=== PATIENT | female | born 1950 | race Caucasian/White ===

== ENCOUNTER 2019-07-15 14:14 | Inpatient (IN) | payer OTHER ==
[~2019-07-15] VITALS: Ht 160 cm; Wt 56.6 kg
[2019-07-15 14:16] VITALS: BP 86/47
[2019-07-15] MEDS ORDERED: LOSARTAN-HCTZ1 EAC3 PO (14:17)
[2019-07-15] MEDS ORDERED: CARVEDILOL25 MG PO (14:17)
[2019-07-15] MEDS ORDERED: BEVESPI AEROS10.7 GM INH (14:18)
[2019-07-15] MEDS ORDERED: LIPITOR80 MG PO (14:18)
[2019-07-15] MEDS ORDERED: OMEPRAZOLE 20 M20 M1 PO (14:18)
[2019-07-15] MEDS ORDERED: REQUIP XL2 MG PO (14:18)
[2019-07-15] MEDS ORDERED: NORVASC10 MG PO (14:19)
[2019-07-15] MEDS ORDERED: CLONIDINE HCL0.2 M2 PO (14:19)
[2019-07-15 15:02] LABS: HEMOGLOBIN 7.1 gm/dL (12.0-15.0); MCH 30.9 pg (26.0-34.0); MCHC 33.9 g/dL (28.0-37.0); MCV 91.2 fL (80.0-100.0); MPV 8.2 fl. (7.2-11.1); NUCLEATED RBCS 0 /100WBC; PLATELET COUNT* 275 thou/uL (150-400); RDW-CV 15.4 % (10.5-14.5); WBC 14.8 thou/uL (4.0-11.0)
[2019-07-15 15:11] LABS: APTT 33.9 Seconds (25.0-31.3); INR 1.1; PROTIME 11.5 Seconds (9.20-11.50)
[2019-07-15 15:19] LABS: INFLUENZA A ANTIGEN Negative (Negative); INFLUENZA B ANTIGEN Negative (Negative)
[2019-07-15 15:35] LABS: ABSOLUTE BASOPHILS 0.1 thou/uL (0.0-0.2); ABSOLUTE MONOCYTES 0.9 thou/uL (0.0-1.2); ABSOLUTE NEUTROPHILS 12.7 thou/uL (1.6-8.1)
[2019-07-15 15:36] LABS: PLATELET ESTIMATE ADEQUATE
[2019-07-15 15:48] LABS: CALCIUM 8.3 mg/dL (8.5-10.1); CREATININE 7.3 mg/dL (0.6-1.3); POTASSIUM 4.9 mmol/L (3.5-5.1)
[2019-07-15 15:59] LABS: ALBUMIN 2.8 g/dL (3.4-5.0); MAGNESIUM 1.3 mg/dL (1.8-2.4); TOTAL BILIRUBIN 0.4 mg/dL (<0.1-1.0); TOTAL PROTEIN 7.7 g/dL (6.4-8.2)
[2019-07-15] MEDS ORDERED: STIOLTO RESPIMAT4 GM INH (16:37)
--- NOTE | 2019-07-15 17:25 | NUR ---
BLOOD CONSENT SIGNED, AND STARTED. VITALS WRITTEN ON PAPER. SEE FLOW SHEET FOR DATA. PATIENT TOLERATED INITIAL TREATMENT WELL.
--- NOTE | 2019-07-15 17:40 | NUR ---
PATIENT TOLERATED SLOW RATE OF BLOOD PRODUCT, INCREASED TO 190 MLS/HR
--- NOTE | 2019-07-15 19:11 | NUR ---
BLOOD FINISHED, PATIENT TOLERATED PROCEDURE WELL.
[2019-07-15 20:00] VITALS: BP 111/54
[2019-07-15 20:14] VITALS: BP 109/55
[2019-07-15 22:57] LABS: URINE BILIRUBIN NEGATIVE (Negative); URINE BLOOD 1+ (Negative); URINE CLARITY CLEAR; URINE COLOR YELLOW; URINE GLUCOSE-RANDOM NEGATIVE (Negative); URINE KETONES NEGATIVE (Negative); URINE LEUKOCYTES-REFLEX NEGATIVE (Negative); URINE NITRITE-REFLEX NEGATIVE (Negative); URINE PROTEIN 3+ (Negative); URINE UROBILINOGEN 0.2 E.U./dl (0.2-1.0)
[2019-07-15 23:03] LABS: AMORPHOUS URATES Moderate /LPF (None Seen); CASTS None Seen /LPF (None Seen); MUCUS 4-6 Moderate strn/LPF (None Seen); SQUAMOUS 0-3 Few /LPF (0-3); URINE RBC 3-10 Few /HPF (0-2); URINE WBC-REFLEX 0-5 Rare /HPF (0-5)
[2019-07-15 23:52] VITALS: BP 118/58
--- NOTE | 2019-07-16 03:51 | NUR ---
ASSUMED CARE OF PT FROM THE ER AT 2009. PT IS ALERT AND ORIENTED. VSS. PERRLA. NO COMPLAINTS OF PAIN. PT IS UP WITH 1 ASSIST. PT IS ON 4 LITERS OF O2. PT IS IN SINUS RYTHM ON THE TELEMETRY. PT IS RESTING COMFORTABLY IN BED. RESPIRATIONS ARE EVEN AND NONLABORED. WILL CONTINUE TO MONITOR PT.
[2019-07-16 04:02] VITALS: BP 131/60
[2019-07-16 04:55] LABS: HEMATOCRIT 24.4 % (37.0-47.0); HEMOGLOBIN 8.2 gm/dL (12.0-15.0); MCH 30.8 pg (26.0-34.0); MCHC 33.8 g/dL (28.0-37.0); MCV 91.1 fL (80.0-100.0); MPV 8.5 fl. (7.2-11.1); RBC 2.68 mil/uL (4.20-5.00); RDW-CV 15.4 % (10.5-14.5); WBC 13.2 thou/uL (4.0-11.0)
[2019-07-16 05:09] LABS: ALBUMIN 2.4 g/dL (3.4-5.0); CALCIUM 7.6 mg/dL (8.5-10.1); CREATININE 6.4 mg/dL (0.6-1.3); PHOSPHORUS* 8.3 mg/dL (2.5-4.9); POTASSIUM 4.1 mmol/L (3.5-5.1)
[2019-07-16 07:40] VITALS: BP 126/57
[2019-07-16 12:14] VITALS: BP 125/61
[2019-07-16 12:52] LABS: % SATURATION 6 % (20-39); IRON 16 ug/dL (50-175)
[2019-07-16 16:49] VITALS: BP 74/50
--- NOTE | 2019-07-16 18:45 | NUR ---
PT HAS HAD NO C/O PAIN/NAUSEA DURING ROUNDING. VSS ON 5L NC. BP HAS BEEN LOW. PT TO BEGIN BOWEL PREP THIS EVENING FOR SCOPE TOMORROW. CXR IN AM. PT IS STEADY WITH SBA. FALL PRECAUTIONS IN PLACE.
[2019-07-17 00:22] VITALS: BP 144/85
--- NOTE | 2019-07-17 03:36 | NUR ---
ASSUMED CARE OF PT AT 1900. PT IS ALERT AND ORIENTED. VSS. PERRLA. NO COMPLAINTS OF PAIN. PT FINISHED BOWEL PREP AND STOOL IS CLEAR.. PT HAS A PERSISTANT COUGH. PT RECIEVED COUGH MEDICAINE. PT IS IN SINUS RYTHM ON THE TELEMETRY. PT IS RESTING COMFORTABLY IN BED. RESPIRATIONS ARE EVEN AND NONLABORED. WILL CONTINUE TO MONITOR PT.
[2019-07-17 04:22] VITALS: BP 150/71
[2019-07-17 05:30] LABS: ALBUMIN 2.6 g/dL (3.4-5.0); CALCIUM 7.6 mg/dL (8.5-10.1); CREATININE 5.8 mg/dL (0.6-1.3); POTASSIUM 4.2 mmol/L (3.5-5.1); TOTAL BILIRUBIN 0.3 mg/dL (<0.1-1.0); TOTAL PROTEIN 7.1 g/dL (6.4-8.2)
[2019-07-17 08:00] VITALS: BP 154/68
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
[2019-07-17 12:00] VITALS: BP 168/70
[2019-07-17 16:00] VITALS: BP 178/131
[2019-07-18 00:52] VITALS: BP 173/75
[2019-07-18 04:45] VITALS: BP 179/78
--- NOTE | 2019-07-18 04:48 | NUR ---
ASSUMED CARE OF PT AT 1900. PT IS ALERT AND ORIENTED. VSS.PERRLA. SOME PAIN REPORTED IN CHEST WHEN PT IS DEEP BREATHING. AT ABOUT 0330, PTS SPO2 WAS LOW 80'S. PTS O2 INCREASED BUT PT SPO2 STILL NOT TO 90. PT STARTED ON BIPAP SETTINGS 12/6, 60% AND RR 12. PT IS IN SINUS RYTHM ON THE TELEMETRY. PT IS SLEEPING QUIETLY IN BED. SPO2 IS 94%. RESPIRATIONS ARE EVEN AND NONLABORED. WILL CONTINUE TO MONITOR PT.
[2019-07-18 05:55] LABS: HEMATOCRIT 25.8 % (37.0-47.0); HEMOGLOBIN 8.5 gm/dL (12.0-15.0); MCH 30.4 pg (26.0-34.0); MPV 7.7 fl. (7.2-11.1); NUCLEATED RBCS 0 /100WBC; PLATELET COUNT* 288 thou/uL (150-400); RDW-CV 15.4 % (10.5-14.5); WBC 14.5 thou/uL (4.0-11.0)
[2019-07-18 06:19] LABS: ALBUMIN 2.4 g/dL (3.4-5.0); CALCIUM 7.7 mg/dL (8.5-10.1); CREATININE 5.6 mg/dL (0.6-1.3); POTASSIUM 4.3 mmol/L (3.5-5.1); TOTAL BILIRUBIN 0.3 mg/dL (<0.1-1.0); TOTAL PROTEIN 6.7 g/dL (6.4-8.2)
[2019-07-18 07:07] LABS: ABSOLUTE EOSINOPHILS 0.1 thou/uL (0.0-0.7); ABSOLUTE NEUTROPHILS 12.3 thou/uL (1.6-8.1); MYELOCYTES 1 %; PLATELET ESTIMATE ADEQUATE
[2019-07-18 07:08] LABS: ANISOCYTOSIS 1+; OVALOCYTES 1+; POIKILOCYTOSIS 1+
[2019-07-18 12:00] VITALS: BP 165/62
--- NOTE | 2019-07-18 15:10 | NUR ---
Pt is A&O. Resides at home with her dtr. Normally independent. No home o2, no DME. No hx of HH or SNF. CM inquired into if Pt would qualify for Medicare, Pt states that she hasn't worked long enough, [employer] to see Pt for Medicaid. Goal is home at [place]. Following.
[2019-07-18 16:00] VITALS: BP 169/62
--- NOTE | 2019-07-18 18:56 | NUR ---
PATINET RESTING IN BED. UP WITH ASSIST X1. 12 L PER NASAL CANULA. BIAPAP PRN. IV FKLUIDS AND ABX THROUGH NEW 22 G LEFT FOREARM IV. SIENNA NICK COMPLETD FOR PATIENT SAFETY
[2019-07-18 20:00] VITALS: BP 83/51
[2019-07-19] VITALS: BP 90/56
--- NOTE | 2019-07-19 03:34 | NUR ---
PT ALERT ORIENTED X 4. UP WITH STAND BY ASSIST. PT SOMEWHAT IMPULSIVE AND ATTEMPTS TO GET OOB WITHOUT CALLING THE NURSE. TELEMETRY SHOWS SR. O2 AT 12 LITERS NC. HS COREG HELD FOR LOW BP. MORPHINE GIVEN HS. WCTM
[2019-07-19 04:00] VITALS: BP 167/62
--- NOTE | 2019-07-19 05:15 | NUR ---
COREG GIVEN EARLY AT O507 FOR BP 172/63 HR 82.
[2019-07-19 05:49] LABS: ABSOLUTE BASOPHILS 0.1 thou/uL (0.0-0.2); ABSOLUTE EOSINOPHILS 0.2 thou/uL (0.0-0.7); ABSOLUTE LYMPHOCYTES 1.3 thou/uL (0.8-5.3); ABSOLUTE MONOCYTES 0.8 thou/uL (0.0-1.2); ABSOLUTE NEUTROPHILS 9.5 thou/uL (1.6-8.1); BASOPHILS 0.6 %; EOSINOPHILS 1.3 %; HEMATOCRIT 24.7 % (37.0-47.0); HEMOGLOBIN 8.2 gm/dL (12.0-15.0); LYMPHOCYTES 11.1 %; MCH 30.6 pg (26.0-34.0); MCHC 33.2 g/dL (28.0-37.0); MCV 92.1 fL (80.0-100.0); MONOCYTES 6.6 %; MPV 8.1 fl. (7.2-11.1); NUCLEATED RBCS 0 /100WBC; PLATELET COUNT* 313 thou/uL (150-400); POLYS 80.4 %; RBC 2.69 mil/uL (4.20-5.00); RDW-CV 15.2 % (10.5-14.5); WBC 11.8 thou/uL (4.0-11.0)
[2019-07-19 05:56] LABS: CALCIUM 8.2 mg/dL (8.5-10.1); CREATININE 5.4 mg/dL (0.6-1.3); POTASSIUM 4.2 mmol/L (3.5-5.1)
[2019-07-19 08:10] VITALS: BP 179/69
[2019-07-19 12:00] VITALS: BP 162/65
--- NOTE | 2019-07-19 12:24 | CON ---
[address] [address] CONSULTATION Name: BARRETT OBANDO Room: [address] IN .R.#: [id number] Admission: 07/15/19 Attend Phys: Jim Bradshaw, Discharge: Date of : 54 Report #: [id number] THIS REPORT FOR: //name// cc: Barbara Gutierrez Tami FNP ~ THIS REPORT FOR: //name// CC: Barbara Bradshaw DATE OF SERVICE: 07/16/2019 HISTORY OF PRESENT ILLNESS: This is a pleasant 68-year-old female with history of COPD, who has presented to the hospital for increasing shortness of breath and dyspnea on exertion. The GI service has been consulted for incidentally diagnosed iron deficiency anemia. The patient denies any abdominal pain, nausea, vomiting, diarrhea, hematemesis, hematochezia. The patient does report about a 20-pound weight loss in the last few months, but attributes this to loss of appetite as well as having to raise a 3-year-old. PAST MEDICAL HISTORY: The patient has a history of hypertension, hyperlipidemia. PAST SURGICAL HISTORY: The patient reports emergent at the time of her childbirth. Otherwise, no surgery. SOCIAL HISTORY: The patient has a history of 1 pack per day smoking until last year and she cut it down to about 1/3 of a pack. She does report heavy alcohol abuse until a few years back. Denies any recreational drug use. FAMILY HISTORY: There is no family history of colon cancer or Barrera related neoplasia. REVIEW OF SYSTEMS: Negative except for what was mentioned in the HPI. PHYSICAL EXAMINATION: VITAL SIGNS: Blood pressure 125/61, temperature 36.9, pulse rate 80, respirations 18, pulse ox 92% on 5 liters. GENERAL: The patient is alert, awake, oriented x 3. HEENT: Pupils are equal, round, reactive to light and accommodation. Mucous membranes are moist. There is no congestion. LUNGS: Clear to auscultation. ABDOMEN: Soft. There is no distention, guarding or rigidity. EXTREMITIES: Warm, well perfused. There is no edema. SKIN: [place] [address] CONSULTATION Name: BARRETT OBANDO Room: [address] IN [facility]#: [id number] Admission: 07/15/19 Attend Phys: Jim Bradshaw, Discharge: Date of : 54 Report #: [id number] LABORATORY DATA: Hemoglobin 8.2, hematocrit 24.4, platelet count 263, WBC count 13.2. INR 1.1. Sodium 134, potassium 4.1, chloride 99, bicarbonate 17, BUN 100, creatinine 6.4. Iron saturation 6%, TIBC 256. IMAGING: Abdominal ultrasound, small echogenic kidneys suggesting CKD, prominent right renal pelvis, contracted gallbladder with gallstones, acute evidence of cholecystitis. ASSESSMENT AND PLAN: Pleasant 68-year-old female with past medical history of hypertension, hyperlipidemia, chronic kidney disease, smoker, presenting for shortness of breath. The patient found to have anemia. She has never had an EGD or colonoscopy before. I would recommend both tomorrow and we will make further recommendations based on results of the endoscopy. <ELECTRONICALLY SIGNED> By: Dar Jane MD 07/19/19 1224 1730 0002Dar Jane MD /nt
--- NOTE | 2019-07-19 14:53 | NUR ---
PER [employer], PT IS SEEKING LEGAL ASSIST TO GET MEDICAID, [employer] TO FOLLOW CASE
[2019-07-19 16:00] VITALS: BP 175/68
--- NOTE | 2019-07-19 17:39 | NUR ---
PT RESTING WITH EYES CLOSED MOST OF THE DAY. EASILY AROUSED WHEN HER NAME IS CALLED. REPORTS SHE IS TIRED. DENIES PAIN. SLOW TO PROGRESS TOWARDS GOALS.
--- NOTE | 2019-07-19 18:49 | NUR ---
PATIENT TRANSFERRED FROM [facility]. REPORT RECEIVED FROM WILMAR BARNES. NO COMPLAINTS AT THIS TIME. IV SL. [address] PATIENT TURNING SELF IN BED. BED ALARM ON FOR PATIENT SAFETY.
[2019-07-19 20:00] VITALS: BP 91/61
[2019-07-20 06:08] LABS: CALCIUM 8.4 mg/dL (8.5-10.1); CREATININE 5.1 mg/dL (0.6-1.3); PHOSPHORUS* 6.2 mg/dL (2.5-4.9); POTASSIUM 4.2 mmol/L (3.5-5.1)
[2019-07-20 08:09] VITALS: BP 197/86
--- NOTE | 2019-07-20 13:55 | EKG ---
[place] [address] ELECTROCARDIOGRAM REPORT Name: BARRETT OBANDO Room: [address] IN .R.#: [id number] Admission: 07/15/19 Attend Phys: Jim Rendon Discharge: Date of : 54 Date of Service: 07/15/19 1417 Report #: [id number] THIS REPORT FOR: cc: Barbara Gutierrez Tami FNP Blick, David R. 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
[2019-07-20 16:02] VITALS: BP 114/76; BP 211/90
--- NOTE | 2019-07-20 16:32 | NUR ---
PT SOMEWHAT PROGRESSING TOWARDS GOALS THIS SHIFT. PT DROWSY BUT NEPHROLOGISTS REPORT PT IS MORE ALERT TODAY THAN PREVIOUS DAYS. NOTED DIFFERENT B/P READINGS IN BUE. PHYSICIAN NOTIFIED AND WILL ADDRESS ON ROUNDS TOMORROW. PT CONTINUES ON 6L/NC WITH SATURATION 93%. NO OTHER CONCERNS AT THIS TIME. CLWR. WCTM.
[2019-07-20 19:50] VITALS: BP 177/70
[2019-07-21] VITALS: BP 119/97
[2019-07-21 04:30] LABS: CALCIUM 8.6 mg/dL (8.5-10.1); CREATININE 4.7 mg/dL (0.6-1.3); MAGNESIUM 1.3 mg/dL (1.8-2.4); PHOSPHORUS* 7.1 mg/dL (2.5-4.9); POTASSIUM 4.4 mmol/L (3.5-5.1)
--- NOTE | 2019-07-21 04:52 | NUR ---
PT A&O X 3-4, ON 5.5L BY NC. NO C/O PAIN. UP TO BSC WITH STANDBY ASSIST. BED ALARM FOR SAFETY. HOURLY ROUNDING COMPLETED. WILL CONTINUE TO MONITOR.
[2019-07-21 07:29] VITALS: BP 156/63
--- NOTE | 2019-07-21 11:45 | NUR ---
ASSUMED CARE OF PT AROUND 0730 THIS AM. REFER TO ASSESSMENT. MAG REPLACED PER NEPHROLOGISTS. OXYGEN TITRATED TO 3L THIS AM. SATS 97%. WILL CONTINUE TO TITRATE TOLERATED. DISCUSSED PLAN OF CARE WITH PT'S DAUGHTER. PT WOULD LIKE TO SPEAK WITH CASE MANAGEMENT FOR DPOA PAPERWORK. CASE MANAGEMENT NOTIFIED. PT'S DAUGHTER HAS LA PAPERWORK THAT NEEDS COMPLETED ON FRONT OF CHART WELL. NO OTHER CONCERNS AT THIS TIME. CLWR. WCTM.
--- NOTE | 2019-07-21 15:24 | NUR ---
PT PROGRESSING TOWARDS GOALS THIS SHIFT. MAG REPLACED ORDERED. OXYGEN TITRATED TO 2L/NC. CREATININE AND CHEST XRAY IMPROVING. PT UP TO CHAIR FOR MEALS AND INCREASED ACTIVITY TO WALKING AROUND THE ROOM WITH SBA. NO OTHER CONCERNS AT THIS TIME. CLWR. WCTM.
[2019-07-21 16:16] VITALS: BP 116/79
[2019-07-21 21:20] VITALS: BP 116/85
--- NOTE | 2019-07-22 04:28 | NUR ---
PT ON 1L, SAT 95% MEDS GIVEN ORDERED. NO C/O PAIN. PT ABLE TO USE BSC INDEPENDENTLY. SLEEPING ON HOURLY ROUNDINGS. WILL CONTINUE TO MONITOR.
[2019-07-22 04:37] LABS: CALCIUM 8.2 mg/dL (8.5-10.1); CREATININE 4.7 mg/dL (0.6-1.3); MAGNESIUM 1.6 mg/dL (1.8-2.4); PHOSPHORUS* 4.2 mg/dL (2.5-4.9); POTASSIUM 3.8 mmol/L (3.5-5.1)
[2019-07-22] MEDS ORDERED: BENZONATATE100 MG PO (07:28)
[2019-07-22] MEDS ORDERED: AZITHROMYCIN 2250 MG PO (07:28)
[2019-07-22] MEDS ORDERED: RENVELA2.4 GM PO (07:28)
[2019-07-22] MEDS ORDERED: ANTACID650 MG PO (07:28)
[2019-07-22] MEDS ORDERED: CEFDINIR300 MG PO (07:28)
[2019-07-22] MEDS ORDERED: PROAIR HFA8.5 GM INH (07:29)
[2019-07-22 08:00] VITALS: BP 160/74
[2019-07-22 14:26] VITALS: BP 160/74
[2019-07-22 16:00] VITALS: BP 118/77
--- NOTE | 2019-07-22 16:00 | NUR ---
HAS DISCHARGE ORDERS FOR TODAY. PT.IS LIVING WITH DAUGHTER,GWENDOLYN. ASSISTED PT.WITH DPOA PAPERWORK. NOTARIZED AND COPY PLACED ON CHART. ORIGINAL AND 4 COPIES GIVEN TO PT. O2 SATS AT REST AND EXERCISE DONE BY R.T. PT.NEEDS 3 L/NC WITH REST AND ACTIVITY. PT.SAID SHE CANNOT AFFORD TO RENT O2 WHEN GIVEN COST TO RENT FROM [facility]. SHE SAID DAUGHTER HAS A CONCENTRATOR AND PORTABLE TANK PURCHASED BY HER FATHER. SHE SAID SHE WILL USE THESE DAUGHTER DOES NOT HAVE TO USE AT THIS TIME. NARCISO SPOKE WITH DAUGHTERGWENDOLYN ON PHONE. SHE CONFIRMS THIS THAT SHE HAS O2 AT HOME THAT SHE IS NOT USING AND HER MOM CAN USE. LAURENCE ASSISTED PT.WITH MEDICAID APPLICATION AND SUBMITTED FOR HER.
--- NOTE | 2019-07-22 18:41 | NUR ---
PATIENT DISCHARGED FROM UNIT AT 1831. ALERT AND ORIENTED X 4. VITAL SIGNS STABLE ON 1L O2 NASAL CANULA. IV DISCONTINUED. DENIES PAIN AND NAUSEA AT THIS TIME. DISCHARGE INSTRUCTIONS AND MEDICATION INFORMATION GIVEN TO PATIENT. LEFT WITH ALL BELONGINGS. PATIENT LEFT WITH SON-IN-LAW VIA VAN.
[2019-07-22 18:43] VITALS: BP 160/74
== END 2019-07-22 18:31 | disposition home or self-care (01) | DRG 177 ==
LOC: M.ERS 14:14 → M.TBA-ER 16:07 → M.2W 16:07 → M.ORTHSURG 07-19 18:11
PROVIDERS: Emergency Medicine Emergency Medical Services; Internal Medicine; Internal Medicine Nephrology; ADMIT Family Medicine
PROC: 5A09357 Assistance with Respiratory Ventilation, Less than 24 Consecutive Hours, Continuous Positive Airway Pressure (ICD-10-PCS; principal; 2019-07-18)
PROC: 5A09357 Assistance with Respiratory Ventilation, Less than 24 Consecutive Hours, Continuous Positive Airway Pressure (ICD-10-PCS; 2019-07-19)
DX: J15.6 Pneumonia due to other Gram-negative bacteria (principal); J96.21 Acute and chronic respiratory failure with hypoxia; J96.22 Acute and chronic respiratory failure with hypercapnia; N17.0 Acute kidney failure with tubular necrosis; N18.5 Chronic kidney disease, stage 5; E87.2 Acidosis; J44.1 Chronic obstructive pulmonary disease with (acute) exacerbation; K80.01 Calculus of gallbladder with acute cholecystitis with obstruction; J98.11 Atelectasis; J44.0 Chronic obstructive pulmonary disease with (acute) lower respiratory infection; I13.2 Hypertensive heart and chronic kidney disease with heart failure and with stage 5 chronic kidney disease, or end stage renal disease; N17.9 Acute kidney failure, unspecified; F17.210 Nicotine dependence, cigarettes, uncomplicated; D64.9 Anemia, unspecified; E78.5 Hyperlipidemia, unspecified; E83.42 Hypomagnesemia; E83.39 Other disorders of phosphorus metabolism; D50.9 Iron deficiency anemia, unspecified; D63.8 Anemia in other chronic diseases classified elsewhere; I50.9 Heart failure, unspecified; Z79.899 Other long term (current) drug therapy; Z88.8 Allergy status to other drugs, medicaments and biological substances; Z88.6 Allergy status to analgesic agent; Z88.2 Allergy status to sulfonamides; Z98.891 History of uterine scar from previous surgery

== ENCOUNTER 2019-09-29 23:09 | Inpatient (IN) | payer MEDICAID ==
[~2019-09-29] VITALS: Ht 160 cm; Wt 25.4 kg
--- NOTE | ~2019-09-29 | OP ---
[address] [address] OPERATIVE REPORT Name: BARRETT OBANDO Room: [address] IN M.R.#: [id number] Admission: 09/30/19 Attend Phys: Biju Diaz MD Discharge: Date of : 54 Report #: [id number] THIS REPORT FOR: //name// cc: RONAL Barrera family physician/PCP RONAL - Holly family physician/PCP ~ THIS REPORT FOR: //name// CC: RONAL physician/PCP Biju Diaz DATE OF SERVICE: 10/26/2019 PREOPERATIVE DIAGNOSIS: End-stage renal disease. POSTOPERATIVE DIAGNOSIS: End-stage renal disease. OPERATION: Creation of left brachiocephalic arteriovenous fistula. SURGEON: Fahad Fletcher DO RIVET TAPPING MACHINE OPERATOR: SHAWN Thompson ANESTHESIA: LMA. ESTIMATED BLOOD LOSS: 10 mL. FLUIDS: 250 crystalloid. URINE OUTPUT: None. SPECIMENS: None. COMPLICATIONS: None. FINDINGS: Left cephalic vein was easily dilated up to 5 mm without resistance. The brachial artery was about 5 mm in diameter and soft, suitable for access. After fistula creation, there is an excellent thrill within the vein throughout the upper arm and palpable left radial pulse. CLINICAL HISTORY: The patient is a 69-year-old woman with end-stage renal disease, currently dialyzing through a right IJ tunneled dialysis catheter, in need of permanent dialysis access. DETAILS OF PROCEDURE: After informed consent was obtained, the patient was taken to the operating room and placed on the OR bed in the supine position. She was administered LMA anesthesia by the Anesthesia team. [facility] [address] [id number] OPERATIVE REPORT Name: BARRETT OBANDO Shania Room: [address] IN .R.#: [id number] Admission: 09/30/19 Attend Phys: Biju Diaz MD Discharge: Date of : 54 Report #: [id number] extremity was prepped and draped in the usual sterile fashion. Full timeout was performed identifying correct patient and procedure. Next, transverse incision made just above the left antecubital fossa. Dissection was carried down through the skin and subcutaneous tissue, both sharp and electrocautery. Cephalic vein was identified, was circumferentially mobilized proximally and distally and controlled with Silastic vessel loop. I then dissected out the brachial artery, controlled proximally and distally with Silastic vessel loops in Pimentel fashion. Administered 5000 units of intravenous heparin. This was allowed to circulate for 3 minutes. I then transected the vein distally, spatulated the vein hua, dilated with the coronary dilators up to 5 mm, flushed it and marked to prevent axial rotation. I then occluded the brachial artery, made a longitudinal arteriotomy, extended with Pimentel scissors. I then performed end-to-side anastomosis with running 6-0 Prolene suture. Prior to completion of the suture line, the artery was allowed to fore and backbleed and the vein was flushed with heparinized saline. I completed the anastomosis, restored flow first up the fistula and distally to the hand. Once hemostasis was ensured, the wound was irrigated with antibiotic solution. It was closed in layers with 3-0 Vicryl and 4-0 Monocryl on the skin and Dermabond was applied. All counts reported as correct x 2. She tolerated the procedure well and transferred to recovery in stable condition. They will have to continue to use her catheter for dialysis needs until the fistula is matured in 3 weeks. By: 1241 Patti Fletcher DO /alvarado
[~2019-09-29 23:09] MED LIST: ANTACID650 MG PO; AZITHROMYCIN 2250 MG PO; BENZONATATE100 MG PO; BEVESPI AEROS10.7 GM INH; CARVEDILOL25 MG PO; CEFDINIR300 MG PO; CLONIDINE HCL0.2 M2 PO; LIPITOR80 MG PO; LOSARTAN-HCTZ1 EAC3 PO; NORVASC10 MG PO; OMEPRAZOLE 20 M20 M1 PO; PROAIR HFA8.5 GM INH; RENVELA2.4 GM PO; REQUIP XL2 MG PO; STIOLTO RESPIMAT4 GM INH
[2019-09-29 23:10] VITALS: BP 126/76; BP 168/108
[2019-09-29 23:40] LABS: HEMATOCRIT 27.6 % (37.0-47.0); HEMOGLOBIN 9.3 gm/dL (12.0-15.0); MCH 32.7 pg (26.0-34.0); MCHC 33.5 g/dL (28.0-37.0); MCV 97.5 fL (80.0-100.0); MPV 8.5 fl. (7.2-11.1); NUCLEATED RBCS 0 /100WBC; PLATELET COUNT* 334 thou/uL (150-400); RBC 2.83 mil/uL (4.20-5.00); RDW-CV 16.7 % (10.5-14.5); WBC 13.3 thou/uL (4.0-11.0)
[2019-09-30] VITALS (36 sets, daily range): BP systolic 87–260; BP diastolic 44–123
[2019-09-30 00:01] LABS: INR 1.1; PROTIME 11.4 Seconds (9.20-11.50)
[2019-09-30 00:06] LABS: BE -12.2 mmol/L (-2 to +3); PCO2 29.8 mmHg (35.0-45.0); PO2 82.3 mmHg (75.0-100.0)
[2019-09-30 00:07] LABS: pH 7.271 (7.340-7.450)
[2019-09-30 00:16] LABS: ANION GAP 18 mmol/L (7-16); BUN 111 mg/dL (7-18); CHLORIDE 104 mmol/L (98-107); CO2 18 mmol/L (21-32); CREATININE 6.5 mg/dL (0.6-1.3); GLUCOSE 137 mg/dL (70-99); POTASSIUM 4.9 mmol/L (3.5-5.1); SODIUM 140 mmol/L (136-145)
[2019-09-30 00:22] LABS: ABSOLUTE EOSINOPHILS 0.5 thou/uL (0.0-0.7); ABSOLUTE LYMPHOCYTES 0.7 thou/uL (0.8-5.3); ABSOLUTE MONOCYTES 0.4 thou/uL (0.0-1.2); ABSOLUTE NEUTROPHILS 11.7 thou/uL (1.6-8.1); ANISOCYTOSIS 1+; CLUMPED PLTS FEW; PLATELET ESTIMATE ADEQUATE; TOXIC GRANULATION 1+
[2019-09-30 00:23] LABS: LARGE PLATELETS FEW
[2019-09-30 00:26] LABS: ALBUMIN 3.3 g/dL (3.4-5.0); ALKALINE PHOSPHATASE 64 U/L (46-116); LIPASE 129 U/L (73-393); MAGNESIUM 1.1 mg/dL (1.8-2.4); NT-PRO BRAIN NAT PEPTIDE > 35000 pg/mL (<300); SGOT 22 U/L (15-37); SGPT 40 U/L (30-65); TOTAL BILIRUBIN 0.4 mg/dL (<0.1-1.0); TOTAL PROTEIN 7.6 g/dL (6.4-8.2)
[2019-09-30 01:01] LABS: URINE BILIRUBIN NEGATIVE (Negative); URINE BLOOD TRACE (Negative); URINE COLOR YELLOW; URINE GLUCOSE-RANDOM TRACE (Negative); URINE KETONES NEGATIVE (Negative); URINE LEUKOCYTES-REFLEX NEGATIVE (Negative); URINE NITRITE-REFLEX NEGATIVE (Negative); URINE PROTEIN 3+ (Negative); URINE UROBILINOGEN 0.2 E.U./dl (0.2-1.0)
[2019-09-30 01:02] LABS: URINE CLARITY SL CLOUDY
[2019-09-30 01:08] LABS: BACTERIA-REFLEX >30 Many /HPF (None Seen); CRYSTALS None Seen /LPF (None Seen); FINE GRANULAR CASTS 0-3 Few /LPF (None Seen); HYALINE CASTS 0-3 Few /LPF (None Seen); MUCUS 4-6 Moderate strn/LPF (None Seen); SQUAMOUS >10 Many /LPF (0-3); TRANSITIONAL EPITHEL CELL 0-3 Few /LPF (None Seen); URINE RBC 3-10 Few /HPF (0-2); WBC CLUMPS Moderate (None Seen)
[2019-09-30] MEDS ORDERED: NORVASC 2.5 MG2.5 M1 PO (03:00)
[2019-09-30] MEDS ORDERED: CLONIDINE HCL0.2 M2 PO (03:03)
--- NOTE | 2019-09-30 03:07 | NUR ---
SPOKE WITH DAUGHTER WHO IS PTS DPOA AND UPDATED HER ON PTS STATUS
--- NOTE | 2019-09-30 06:24 | NUR ---
PATIENT ARRIVED ON UNIT AT 0405. COVID PRECAUTIONS IN PLACE. MEDICAL OFFICE TECHNICIAN ASSESSMENT COMPLETED CHARTED. PATIENT DROWSY/SLEEPING. OPENS EYES TO DIRECT VERBALIZATION TO DO SO. WILL ANSWER SIMPLE, ONE WORD QUESTIONS APPROPRIATELY. QUESTIONS WITH MORE COMPLICATED ANSWERS, PATIENT DOES NOT SEEM TO UNDERSTAND. TITRATED TO 3L O2 VIA NC. PATIENT MAINTAINING O2 BETWEEN 88-93%. NOTED TO HAVE CONSISTEND SYSTOLIC PRESSURE >200. TRIED MULTIPLE LOCATIONS FOR BP READING. CONTACTED MD AND NEW ORDERS RECEIVED. NO COMPLAINTS OF PAIN OR DISCOMFORT NOTED AT THIS TIME. WILL CONTINUE TO MONITOR.
--- NOTE | 2019-09-30 10:56 | EKG ---
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[place] : 1950 Requested By: Randi Pham Order Number: [id number] MD: Koby Liz Measurements Intervals [place] Rate: 90 P: 72 IN: 156 QRS: 49 QRSD: 94 T: 49 QT: 389 QTc: 476 Interpretive Statements Sinus rhythm Left atrial enlargement Probable LVH with secondary repol abnrm Compared to ECG 07/15/2019 14:17:58 no change Electronically Signed On 09-30-2019 10:55:05 CDT by Koby Liz [email or web address] <ELECTRONICALLY SIGNED> By: Koby Liz MD, [facility] 09/30/19 1055 2328 2328 Koby Liz MD, [facility] /EPI
[2019-09-30 12:22] LABS: CALCIUM 7.8 mg/dL (8.5-10.1); CREATININE 6.6 mg/dL (0.6-1.3); MAGNESIUM 1.6 mg/dL (1.8-2.4); POTASSIUM 4.8 mmol/L (3.5-5.1); TROPONIN-I LEVEL 0.11 ng/mL (<0.06)
--- NOTE | 2019-09-30 13:31 | 2DMMODE ---
[place] [address] 2 D/M-MODE ECHOCARDIOGRAM Name: NEREIDA OBANDOMary Jauregui Room: 001-P ADM IN .R.#: [id number] Admission: 09/30/19 Attend Phys: Biju Diaz, Discharge: Date of : 54 Date of Service: 09/30/19 1329 Report #: [id number] THIS REPORT FOR: cc: FAM - No family physician/PCP FAM - No family physician/PCP Koby Liz MD [facility]GED WITH [facility] ~ APPROVED REPORT Study performed: 09/30/2019 10:43:02 EXAM: Comprehensive 2D, Doppler, and color-flow Echocardiogram Patient Location: In-Patient Room #: 001 Status: routine BSA: 1.55 BP: 222/99 mmHg Rhythm: Tachycardia Other Information Study Quality: Excellent Indications Dyspnea 2D Dimensions IVSd: 12.00 (7-11mm) LVOT Diam: 19.50 (18-24mm) LVDd: 36.83 mm PWd: 11.39 (7-11mm) Ascending Ao: 32.73 (22-36mm) LVDs: 24.34 (25-40mm) Aortic Root: 25.06 mm Volumes Left Atrial Volume (Systole) LA ESV Index: 56.70 mL/m2 Aortic Valve AoV Peak Hao.: 1.30 m/s AO Peak Gr.: 6.80 mmHg LVOT Max P.75 mmHg AO Mean Gr.: 4.10 mmHg LVOT Mean P.12 mmHg LVOT Max V: 0.97 m/s AO V2 VTI: 14.19 cm LVOT Mean V: 0.69 m/s SILVIO (VTI): 1.62 cm2 LVOT V1 VTI: 7.72 [place] [address] 2 D/M-MODE ECHOCARDIOGRAM Name: BARRETT OBANDO Room: [address] IN ..#: [id number] Admission: 09/30/19 Attend Phys: Biju Diaz, Discharge: Date of : 54 Date of Service: 09/30/19 1329 Report #: [id number] Pulmonary Valve PV Peak Hao.: 1.42 m/s PV Peak Gr.: 8.04 mmHg Tricuspid Valve RAP Estimate: 5.00 mmHg TR Peak Gr.: 54.74 mmHg RVSP: 59.00 mmHg PA Pressure: 59.00 mmHg Left Ventricle The left ventricle is normal size. There is normal LV segmental wall motion. Mild concentric left ventricular hypertrophy. Left ventricular systolic function is normal. The left ventricular ejection fraction is within the normal range. LVEF is 55-60%. This study is not technically sufficient to allow evaluation of the LV diastolic function. Right Ventricle Right ventricle is dilated. The right ventricular systolic function is normal. Atria Left atrium is severely dilated. Right atrium is dilated. Aortic Valve Mild aortic valve sclerosis. Mild aortic regurgitation. There is no aortic valvular stenosis. Mitral Valve There is mitral annular calcification. Mild mitral regurgitation. No evidence of mitral valve stenosis. Tricuspid Valve The tricuspid valve is normal in structure. Mild tricuspid regurgitation. estimated pa pressure 65 mm Hg Pulmonic Valve The pulmonary valve is normal in structure. Moderate pulmonic regurgitation. Great Vessels The aortic root is normal in size. IVC is normal in size and collapses >50% with inspiration. Pericardium There is [place] [address] 2 D/M-MODE ECHOCARDIOGRAM Name: BARRETT OBANDO Shania Room: [address] IN ..#: [id number] Admission: 09/30/19 Attend Phys: Biju Diaz, Discharge: Date of : 54 Date of Service: 09/30/19 1329 Report #: [id number] <Conclusion> Mild concentric left ventricular hypertrophy. LVEF is 55-60%. Left atrium is severely dilated. Mild aortic valve sclerosis. Mild aortic regurgitation. Mild mitral regurgitation. Mild tricuspid regurgitation. estimated pa pressure 65 mm Hg <ELECTRONICALLY SIGNED> By: Koby Liz MD, [facility] 09/30/19 1329 28 28 Koby Liz MD, FACC /INF
--- NOTE | 2019-09-30 15:00 | NUR ---
SPOKE WITH DAUGHTER,GWENDOLYN, ON CELL. SHE SAID HER MOM LIVES WITH HER. BEFORE SHE HAD A CHANGE IN HER MENTAL STATUS, SHE WAS INDEPENDENT. ONLY DME IS O2. SHE HAS BEEN GETTING SOMEWHAT UNSTEADY ON HER FEET. REFUSED HH AT LAST ADMISSION. SHE SAID PT.DID NOT QUALIFY FOR MEDICARE, SHE HAS NOT WORKED OUTSIDE THE HOME TO QUALIFY. PER EBONY/LAURENCE, THE STATE REFUSED HER MEDICAID APPLICATION SHE WAS LATE TURNING IN THE VERIFICATIONS. THEREFORE LAURENCE WILL NEED TO REAPPLY FOR HER. SHE WILL FAX AUTHORIZATION FORM TO FOR EITHER PT.OR DAUGHTER TO SIGN SO REAPPLICATION CAN BE SENT IN. INFORMED GWENDOLYN OF THIS. SHE ASKED THAT EBONY CALL HER THURSDAY. ALSO GAVE HER EBONY'S NUMBER. GWENDOLYN IS PTS DPOA.
--- NOTE | 2019-09-30 15:17 | CON ---
[address] [address] CONSULTATION Name: GISELLA,BARRETT R Room: [address] ADM IN M.R.#: [id number] Admission: 09/30/19 Attend Phys: Biju Diaz MD Discharge: Date of : 54 Report #: [id number] THIS REPORT FOR: //name// cc: RONAL Barrera family physician/PCP RONAL - Holly family physician/PCP ~ THIS REPORT FOR: //name// CC: RONAL physician/PCP Biju Diaz DATE OF SERVICE: 09/30/2019 CARDIOLOGY CONSULTATION HISTORY OF PRESENT ILLNESS: The patient is a 69-year-old single white female who I was asked to see in the hospital today after she was noted to be tachycardic. The patient has had several hospitalizations here at [facility] in the past. She was here in 07/2019 with pneumonia. She developed acute kidney injury. She is noted to be anemic. She was treated with steroids and antibiotics. She was discharged home. She was brought back to the Emergency Room last night by family members. She has been confused and is hallucinating. She apparently had chills. She apparently was placed on a kidney transplant list. After she was admitted, she was noted to be in a narrow complex tachycardia. She was placed on intravenous diltiazem. She converted to a sinus rhythm. I was asked to see her for further evaluation and treatment. She denies a history of myocardial infarction, chest pain. She does get short of breath if she exerts herself. She has had a recent cough. PAST MEDICAL HISTORY: She has had tonsillectomy, hypertension. MEDICATIONS: On admission consist of the following drugs. She is on carvedilol, Requip, omeprazole, Lipitor, amlodipine. ALLERGIES: SHE HAS AN ALLERGY TO PENICILLIN. FAMILY HISTORY: Positive for heart disease. SOCIAL HISTORY: She is , lives with daughter in [place]. Quit smoking years ago. She smoked one-half pack of cigarettes a day, used to drink a 6-pack of beer a day. No longer abuses alcohol. REVIEW OF SYSTEMS: Denies history of stroke, no history of liver disease. She has chronic kidney disease. No cancer. No psychiatric illness. PHYSICAL EXAMINATION: GENERAL: Revealed an elderly female lying in bed. [place] [address] CONSULTATION Name: BARRETT OBANDO Room: [address]#: [id number] Admission: 09/30/19 Attend Phys: Biuj Diaz MD Discharge: Date of : 54 Report #: [id number] VITAL SIGNS: She has blood pressure of 120/60, pulse 80, she is afebrile. HEENT: She was anicteric. Conjunctivae pink. Mucous membranes moist. NECK: Veins do not appear distended. No carotid bruits. CHEST: Revealed distant breath sounds. CARDIOVASCULAR: Regular rate and rhythm, no murmur. ABDOMEN: Soft. EXTREMITIES: Had no edema. Dorsalis pedis pulse not palpated. SKIN: Cool and dry. NEUROLOGIC: Nonfocal. Her ECG on admission showed a sinus rhythm with nonspecific ST-segment changes. Earlier today, the patient went into a narrow complex tachycardia at 150 beats per minute. Currently, she appears to be in a sinus bradycardia. Her workup, when she was admitted last night, she had a portable chest x-ray that showed tortuous aorta, small effusion, hyperinflated lung charles. CT scan of the head was performed that showed chronic white matter changes. LABORATORY WORK: Sodium 142, BUN 107; creatinine 6.6, it was 7.3 in July. Her liver function studies were normal. Albumin 3.3. Troponin 0.11. BNP 35,000. TSH in July was 1.8. Her white blood cell count 13.3; hemoglobin 9.3, it was 7.1 in July. IMPRESSION AND RECOMMENDATIONS: 1. Supraventricular tachycardia. Suspect atrial flutter. The patient on diltiazem. At this time, I would consider amiodarone. 2. Renal failure. 3. Previous tobacco abuse. 4. History of alcohol abuse. 5. Anemia. No history of bleeding. I would not recommend anticoagulation at this time. 6. Hypertension. The patient has been on a beta tamanna and calcium tamanna. <ELECTRONICALLY SIGNED> By: Koby Liz MD, FACC 09/30/19 1517 1302 [id number] Liz MD, FACC /nt
--- NOTE | 2019-09-30 17:33 | NUR ---
PT SVT WITH AFLUTTER AT APPROX 1100. DR GOODWIN AND DR KONG NOTIFIED. CARDEZEM GTT INITIATED. PT CONVERTED TO SB. CARDEZEM THEN D/C'D. PT CONFUSED AND FORGETFUL. PANDYA TO DD. DENIES PAIN. SLOW TO PROGRESS TOWARDS GOALS.
[2019-10-01] VITALS (21 sets, daily range): BP systolic 140–202; BP diastolic 59–84
--- NOTE | 2019-10-01 03:30 | NUR ---
RECEIVED REPORT AND ASSUMED CARE AT 1900. VSS. ICU MONITORING IN PLACE. PT DENIES COMPLAINTS OF PAIN. ASSESSMENT COMPLETED CHARTED. DISCUSSED PLAN OF CARE WITH PT. VERBALIZED UNDERSTANDING. MEDICATION PER EMAR. BED LOCKED IN LOWEST POSITION,CALL LIGHT WITHIN REACH, BED ALARM ON.
[2019-10-01 04:37] LABS: HEMATOCRIT 24.8 % (37.0-47.0); HEMOGLOBIN 8.5 gm/dL (12.0-15.0); MCH 33.4 pg (26.0-34.0); MCHC 34.3 g/dL (28.0-37.0); MCV 97.3 fL (80.0-100.0); MPV 8.2 fl. (7.2-11.1); RBC 2.55 mil/uL (4.20-5.00); RDW-CV 16.8 % (10.5-14.5); WBC 8.6 thou/uL (4.0-11.0)
[2019-10-01 04:51] LABS: ALBUMIN 2.9 g/dL (3.4-5.0); CALCIUM 8.5 mg/dL (8.5-10.1); CREATININE 6.7 mg/dL (0.6-1.3); MAGNESIUM 1.7 mg/dL (1.8-2.4); PHOSPHORUS* 7.8 mg/dL (2.5-4.9); POTASSIUM 4.6 mmol/L (3.5-5.1)
[2019-10-01 04:52] LABS: % SATURATION 22 % (20-39); IRON 59 ug/dL (50-175)
--- NOTE | 2019-10-01 09:17 | NUR ---
Nutrition: Noted a BMI of 10, and wt of 56# - this is in error. More accurately, wt is 56kg with a normal BMI. Defer further assessment at this time.
--- NOTE | 2019-10-01 13:19 | NUR ---
PT TRANSFERED TO ROOM 106. REPORT GIVEN TO WILMAR ELLIOTT. ALL BELONGINGS SENT WITH PT.
--- NOTE | 2019-10-01 14:08 | NUR ---
SECOND BUTLER INFORMED ME THAT PT C/O OF DOUBLE VISION PRIOR TO TRANSFER TO [facility]. CONTACT DR. KONG TO INFORM AND THAT PT HAS NO FOCAL DEVIATION AND NO OTHER SYMPTOMS, BP 140/60. INSTRUCTED IF PATIENT HAS ANY WORSENING SYMPTOMS TO OBTAIN HEAD CT TO R/O CVA. WILL CONTINUE TO ASSESS.
--- NOTE | 2019-10-01 16:23 | NUR ---
PT STATES THAT DOUBLE VISION HAS RESOLVED.
--- NOTE | 2019-10-01 17:13 | NUR ---
LAB CALLED TO INFORM THAT COVID 19 SAMPLE SENT TO OUTSIDE LAB SUFFERED A MALFUNCTION AND HAD TO BE CANCLED. CONTACT DR. KONG AND INSTRUCTED TO CANCEL REPEAT TEST, NO NEED FOR FURTHER TESTING.
[2019-10-02] VITALS: BP 150/64
[2019-10-02 04:00] VITALS: BP 157/80
[2019-10-02 05:59] LABS: HEMATOCRIT 24.1 % (37.0-47.0); HEMOGLOBIN 8.2 gm/dL (12.0-15.0); MCHC 34.1 g/dL (28.0-37.0); MCV 96.8 fL (80.0-100.0); MPV 8.4 fl. (7.2-11.1); RBC 2.49 mil/uL (4.20-5.00); RDW-CV 16.3 % (10.5-14.5)
[2019-10-02 06:06] LABS: CALCIUM 7.8 mg/dL (8.5-10.1); CREATININE 6.8 mg/dL (0.6-1.3); MAGNESIUM 1.5 mg/dL (1.8-2.4); POTASSIUM 4.2 mmol/L (3.5-5.1)
[2019-10-02 07:30] VITALS: BP 175/70
--- NOTE | 2019-10-02 07:35 | NUR ---
ASSUMED PATIENT CARE AT 1900. ASSESSMENT COMPLETED CHARTED. PATIENT IS NSR ON THE MONITOR. HOURLY ROUNDING IN PLACE FOR PATIENT SAFETY. FALL PRECAUTIONS IN PLACE FOR PATIENT SAFETY. CLWR.
[2019-10-02 12:00] VITALS: BP 154/64
[2019-10-02 16:00] VITALS: BP 177/70
--- NOTE | 2019-10-02 18:11 | NUR ---
PT PROGRESSED TOWARD GOALS TODAY PANDYA DC 750 URINE OUT PUT UP WITH STAND BY PT STATES SHE IS WEAK. CREAT 6.8 PT AGREED TO DIALYSIS PER DR. GONZALEZ PLACE DIALYSIS CATH IN AM IN IR AND START DIALYSIS VASCULAR CONSULT SPOKE WITH DR CHU STATED HE MIGHT BE IN THIS EVENING TO PLACE CATH ASKED TO HAVE THE KIT FOR FEMORAL ACCESS, CONSENT, AND ULTRASOUND. PROCEDURE IS SCHEDULED IN THE MORNING
[2019-10-02 20:00] VITALS: BP 160/66
[2019-10-02 22:07] LABS: COMPLEMENT-C4 20 mg/dL (14-44)
[2019-10-03] VITALS: BP 168/75
[2019-10-03 02:07] LABS: HEPATITIS B SURFACE AG Negative (Negative)
[2019-10-03 04:00] VITALS: BP 141/59
[2019-10-03 05:37] LABS: ABSOLUTE BASOPHILS 0.1 thou/uL (0.0-0.2); ABSOLUTE EOSINOPHILS 0.3 thou/uL (0.0-0.7); ABSOLUTE LYMPHOCYTES 1.3 thou/uL (0.8-5.3); ABSOLUTE MONOCYTES 0.8 thou/uL (0.0-1.2); ABSOLUTE NEUTROPHILS 6.5 thou/uL (1.6-8.1); BASOPHILS 0.9 %; EOSINOPHILS 3.5 %; HEMATOCRIT 24.8 % (37.0-47.0); HEMOGLOBIN 8.5 gm/dL (12.0-15.0); LYMPHOCYTES 14.3 %; MCHC 34.3 g/dL (28.0-37.0); MCV 96.3 fL (80.0-100.0); MONOCYTES 8.9 %; MPV 8.5 fl. (7.2-11.1); NUCLEATED RBCS 0 /100WBC; PLATELET COUNT* 245 thou/uL (150-400); POLYS 72.4 %; RBC 2.57 mil/uL (4.20-5.00); RDW-CV 16.2 % (10.5-14.5); WBC 8.9 thou/uL (4.0-11.0)
[2019-10-03 06:00] LABS: CALCIUM 7.5 mg/dL (8.5-10.1); CREATININE 7.1 mg/dL (0.6-1.3); PHOSPHORUS* 6.1 mg/dL (2.5-4.9)
[2019-10-03 06:11] LABS: CALCIUM 8.3 mg/dL (8.5-10.1); CREATININE 7.2 mg/dL (0.6-1.3); POTASSIUM 3.9 mmol/L (3.5-5.1)
--- NOTE | 2019-10-03 06:18 | NUR ---
ASSESSMENT CHARTED. PATIENT ABLE TO TURN SELF IN BED, AMBULATES WITH ASSIST TO BATHROOM. ALERT AND ORIENTED FOR THE ENTIRE SHIFT. PATIENT IS SCHEDULED TO HAVE TEMPORARY DIALYSIS CATHETER PLACED IN AM WITH DR. CHU. CONSENT WILL NEED SIGNED ONCE PHYSICIAN SPEAKS WITH PATIENT. PATIENT DOES VERBALIZE AGREEMENT TO PROCEDURE. QUESTIONS ANSWERED TO THE BEST OF MY ABILITY. NO SIGNIFICANT EVENTS THIS SHIFT. STILL AWAITING RETURN OF COVID PCR
--- NOTE | 2019-10-03 08:00 | NUR ---
PT TAKEN TO SURGERY FOR DIALYSIS PORT AT THIS TIME. WILL ASSESS PT UPON RETURN AND ADMINISTER APPROPRIATE MEDICATIONS AT THAT TIME.
[2019-10-03 11:24] VITALS: BP 183/70
--- NOTE | 2019-10-03 15:00 | NUR ---
FAXED REQUESTED CHART INFORMATION TO [facility] TO START DIALYSIS SET UP [phone]. REQUESTED [facility] PT.HAD FIRST DIALYSIS TODAY, SO NO REPORT TO SEND. EMAILED [employer] TO CHECK ON STATUS OF REDO OF MEDICAID APPLICATION.
[2019-10-03 16:00] VITALS: BP 163/67
--- NOTE | 2019-10-03 16:53 | EKG ---
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 : 1950 Requested By: Koby Liz Order Number: [id number] Estevan MD: Harlan Strong Measurements Intervals [place] Rate: 53 P: TX: QRS: 35 QRSD: 94 T: 34 QT: 561 QTc: 527 Interpretive Statements Junctional rhythm Consider left ventricular hypertrophy Nonspecific T abnormalities, anterior leads Prolonged QT interval Compared to ECG 09/29/2019 23:28:23 Junctional rhythm now present T-wave abnormality now present Prolonged QT interval now present Sinus rhythm no longer present Atrial abnormality no longer present Electronically Signed On 10-03-2019 16:51:53 CDT by Harlan Strong [email or web address] <ELECTRONICALLY SIGNED> By: Harlan Strong MD, [facility] 10/03/19 1651 1204 1204 Harlan Strong MD, [facility] /EPI
--- NOTE | 2019-10-03 16:56 | EKG ---
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: [place] : 1950 Requested By: Biju Diaz Order Number: [id number] Estevan MD: Harlan Strong Measurements Intervals [place] Rate: 66 P: 75 MS: 151 QRS: 33 QRSD: 93 T: 230 QT: 405 QTc: 425 Interpretive Statements Sinus rhythm Probable LVH with secondary repol abnrm Compared to ECG 09/29/2019 23:28:23 Atrial abnormality no longer present Electronically Signed On 10-03-2019 16:54:40 CDT by Harlan Strong [email or web address] <ELECTRONICALLY SIGNED> By: Harlan Strong MD, [facility] 10/03/19 1654 2219 2219 Harlan Strong MD, [facility] /EPI
--- NOTE | 2019-10-03 18:08 | NUR ---
PT IS RESTING AT THIS TIME. PT C/O PAIN TO NECK. PT GIVEN NORCO. PT TOLERATED DIALYZING WITHOUT ISSUE. PT DID HAVE AN ELEVATED BP X1 DURING. VSS ON 3L NC. SR ON THE MONITOR. NO FURTHER REQUESTS. CLWR.
[2019-10-03 20:00] VITALS: BP 176/78
--- NOTE | 2019-10-04 04:18 | NUR ---
PATIENT SLEPT WELL DURING THIS SHIFT. PT UP WITH STANDBY TO BATHROOM, VOIDS YELLOW URINE. PT DENIES PAIN. PT WITH ONE EPISODE OF NAUSEA DURING THIS SHIFT; ZOFRAN GIVEN AND PT ABLE TO RETURN TO SLEEP. PT ON O2 @ 3 LITERS PER NASAL CANNULA. PT WITH DIALYSIS CATH IN RT UPPER CHEST. CATH WRAPPED IN GAUZE. PT DENIES NEEDS AT THIS TIME. FREQUENTLY USED ITEMS AND CALL LIGHT WITHIN REACH. SIDERAILS UPX2 AND BED ALARM ON. WILL CONTINUE TO MONITOR.
[2019-10-04 05:26] LABS: HEMATOCRIT 25.8 % (37.0-47.0); HEMOGLOBIN 8.7 gm/dL (12.0-15.0); MCH 32.7 pg (26.0-34.0); MCHC 33.6 g/dL (28.0-37.0); MCV 97.2 fL (80.0-100.0); MPV 8.8 fl. (7.2-11.1); RBC 2.66 mil/uL (4.20-5.00); RDW-CV 15.9 % (10.5-14.5); WBC 8.7 thou/uL (4.0-11.0)
[2019-10-04 05:41] LABS: CALCIUM 8.3 mg/dL (8.5-10.1); CREATININE 5.6 mg/dL (0.6-1.3); MAGNESIUM 1.5 mg/dL (1.8-2.4); POTASSIUM 4.2 mmol/L (3.5-5.1)
[2019-10-04 05:48] LABS: ALBUMIN 2.9 g/dL (3.4-5.0); CALCIUM 8.5 mg/dL (8.5-10.1); CREATININE 5.6 mg/dL (0.6-1.3); PHOSPHORUS* 5.3 mg/dL (2.5-4.9); POTASSIUM 4.3 mmol/L (3.5-5.1)
[2019-10-04 06:09] VITALS: BP 166/72
[2019-10-04 08:15] VITALS: BP 133/66
--- NOTE | 2019-10-04 11:41 | CON ---
[address] [address] CONSULTATION Name: GISELLA,BARRETT Shania Room: [address] IN M.R.#: [id number] Admission: 09/30/19 Attend Phys: Biju Diaz MD Discharge: Date of : 54 Report #: [id number] THIS REPORT FOR: //name// cc: RONAL Barrera family physician/PCP RONAL Barrera family physician/PCP ~ THIS REPORT FOR: //name// CC: RONAL physician/PCP Biju Diaz DATE OF SERVICE: 09/30/2019 NEPHROLOGY CONSULTATION CONSULTING PHYSICIAN: Biju Diaz MD REASON FOR CONSULTATION: Elevated creatinine. HISTORY OF PRESENT ILLNESS: A 69-year-old female with a history of advanced chronic kidney disease with very poor followup. She has not been seen in our office in the last several years. A while back, she was seeing Dr. Parker and had a followup with her and never followed up. When she was hospitalized here in July, she had a creatinine of 4.7 and was to follow up in our office within a few weeks' time. She actually has an appointment next week to see our nurse practitioner. Her creatinine here on admission was 6.6. She came in with some confusion and shortness of breath and evidence of fluid overload. She received a dose of IV Lasix. She is making urine. Her appetite has been down for the past 2-3 months. She had significantly elevated blood pressures and elevated heart rate. She was started on Cardizem. She currently does not have any complaints. Breathing is much better. REVIEW OF SYSTEMS: Constitutional, psych, heme, eyes, ENT, respiratory, cardiac, GI, , endocrine, all negative except as documented above. PAST MEDICAL HISTORY: 1. Chronic kidney disease stage 5. 2. COPD. 3. Hypertension. SOCIAL HISTORY: Former smoker. FAMILY HISTORY: Not pertinent in this 69-year-old female. CURRENT MEDICATIONS: Reviewed. PHYSICAL EXAMINATION: [place] [address] CONSULTATION Name: BARRETT OBANDO Shania Room: [address] IN [facility]#: [id number] Admission: 09/30/19 Attend Phys: Biju Diaz MD Discharge: Date of : 54 Report #: [id number] VITAL SIGNS: Blood pressure 118/54, pulse has been primarily in the 90s, temperature 36.7. GENERAL: No acute distress. EYES: Open. EARS: Externally normal. NECK: Supple. CARDIOVASCULAR: Regular rate. No rub. LUNGS: Diminished breath sounds. ABDOMEN: Soft. MUSCULOSKELETAL: Nontender. PSYCHIATRIC: Awake, alert. LABORATORY DATA: White cell count 13.3, hemoglobin 9.3, platelets 334. Sodium 142, potassium 4.8, chloride 107, bicarbonate 19, BUN 107, creatinine 6.6, glucose 116, calcium 7.8, phosphorus 7, magnesium 1.6. ASSESSMENT: 1. Chronic kidney disease stage 5, now approaching end-stage kidney disease. Has not followed in our office. CT scan of the abdomen noted. UA noted. Her creatinine on 09/30/2019 was 6.6, on 07/22/2019 was 4.7. 2. Chronic obstructive pulmonary disease. 3. Hypertension. 4. Anemia. 5. Hyperphosphatemia. 6. Hypomagnesemia. 7. Metabolic acidosis. 8. Hypoalbuminemia with an albumin of 3.3. 9. Anemia with a hemoglobin of 9.3. 10. Volume overload. 11. COVID-19 patient under investigation. PLAN: 1. I discussed with her and provided her with information regarding initiation of hemodialysis. My recommendation is for her to have a dialysis catheter placed and initiate dialysis today. She is reluctant to do so and wants to discuss with family prior to proceeding. We discussed risks, benefits and purpose of dialysis procedure and she will discuss with family and then make an informed decision on how she wishes to proceed. I did discuss this with ICU nurse as well. 2. On oral bicarbonate. 3. On Renal diet. 4. Check iron studies. 5. She is making urine. Her magnesium is being replaced. We will check lab again in the morning and [place] [address] CONSULTATION Name: BARRETT OBANDO Room: [address] IN M.R.#: [id number] Admission: 09/30/19 Attend Phys: Biju Diaz MD Discharge: Date of : 54 Report #: [id number] Thank you for requesting my opinion in the care and management of this patient. <ELECTRONICALLY SIGNED> By: Ivon Duong MD 10/04/19 1141 1311 [id number] antonio Duong MD /nt
--- NOTE | 2019-10-04 14:21 | NUR ---
ASSUMED CARE OF THE PT @ 0700.PT IS A/O X 3. DENES PAIN. PT IN DIALYSIS THE AM. HR UP IN DIALYSIS 120S TO 160S.PROXIMAL AFIB AND SVT. POWER BRAKE REBUILDER NOTIFIED. DIALYSIS STOPPED AFER 2 HOURS. NEW ORDER FOR FLECAINIDE 200MG X1. PT CONVERT TO NSR BEFORE DOSE. DR GOSS NOTIFIED. PHYSICAN STATED TO HOLD THE DOSE. LT FA IV PATENT. IV IRON INFUSED. MAG 1.5. NEW ORDER TO GIVE MAG 1GM. INFUSING WITHOUT DIFFICULTY. UP WITH ASSIST X1. PT IS CONTINENT OF B AND B. LUNGS CLEAR. PT IS ON 3 LITER OF O2. MOIST COUGH NOTED. PT IS RESTING QUIETLY IN BED AT THIS TIME WITH CALL LIGHT IN REACH. WILL CONTINUE TO MONITOR.
--- NOTE | 2019-10-04 15:14 | NUR ---
RYLAND called [facility] to follow up on referral and faxed updates and more documents as requested. RYLAND was informed that [facility] is working on the reapplication of Medicaid and unit assisted in pt signing needed forms to provide to [facility]. RYLAND/CM to continue to follow to assist with safe dc planning.
[2019-10-04 18:07] LABS: ANA INTERPRETATION Negative (())
[2019-10-04 20:00] VITALS: BP 136/72
--- NOTE | 2019-10-05 04:49 | NUR ---
PATIENT SLEPT WELL DURING THIS SHIFT. PT WITH O2 @ 3 LITERS PER NASAL CANNULA. PT UP TO BSC WITH STANDBY. PT WITH DIALYSIS CATHETER IN RT UPPER CHEST. PT WITH TWO SALINE LOCKS; PATENT. PT DENIES PAIN/NAUSEA. FREQUENTLY USED ITEMS AND CALL LIGHT WITHIN REACH. SIDERAILS UPX3 AND BED ALARM ON. WILL CONTINUE TO MONITOR.
[2019-10-05 06:00] VITALS: BP 140/70
[2019-10-05 07:04] LABS: ALBUMIN 2.8 g/dL (3.4-5.0); CALCIUM 8.6 mg/dL (8.5-10.1); CREATININE 4.7 mg/dL (0.6-1.3); PHOSPHORUS* 4.8 mg/dL (2.5-4.9); POTASSIUM 3.9 mmol/L (3.5-5.1)
[2019-10-05 08:16] VITALS: BP 169/74
--- NOTE | 2019-10-05 10:57 | OP ---
[address] [address] OPERATIVE REPORT Name: BARRETT OBANDO Shania Room: [address] IN .R.#: [id number] Admission: 09/30/19 Attend Phys: Biju Diaz MD Discharge: Date of : 54 Report #: [id number] THIS REPORT FOR: //name// cc: RONAL Barrera family physician/PCP RONAL - Holly family physician/PCP ~ THIS REPORT FOR: //name// CC: RONAL physician/PCP Biju Diaz DATE OF SERVICE: 10/03/2019 PREOPERATIVE DIAGNOSIS: End-stage renal disease. POSTOPERATIVE DIAGNOSIS: End-stage renal disease. OPERATION: 1. Ultrasound-guided access to the right internal jugular vein. 2. Tunneled dialysis catheter placement. SURGEON: Fahad Fletcher DO GARDE MANGER: Theodore Robledo. ANESTHESIA: Sedation with local. ESTIMATED BLOOD LOSS: Minimal. SPECIMENS: None. COMPLICATIONS: None. IMPLANTS: A Bard Retro 23 cm TDC in the right IJ. FINDINGS: The right IJ was soft and compressible, suitable for access. Catheter was positioned in the right atrium SVC junction and aspirated and flushed well. CLINICAL HISTORY: The patient is a 69-year-old woman with known chronic kidney disease who was admitted with respiratory failure and acute worsening of her chronic kidney issues and has progressed to end-stage renal disease in need of dialysis access to initiate hemodialysis this admission. DESCRIPTION OF PROCEDURE: After informed consent was obtained, the patient was taken to the operating room and placed on the OR bed in the supine position. She was administered sedation by the anesthesia team. The right neck was [facility] [address] [place] [address] OPERATIVE REPORT Name: GISELLABARRETT Shania Room: [address] IN .R.#: [id number] Admission: 09/30/19 Attend Phys: Biju Diaz MD Discharge: Date of : 54 Report #: [id number] prepped and draped in usual sterile fashion. Full timeout was performed identifying correct patient and procedure. Next, the skin and subcutaneous tissues and the right neck were anesthetized with local anesthetic. Using ultrasound guidance, right internal jugular vein was identified, was accessed with a micropuncture needle. These images were preserved. Using Seldinger technique, a microwire and microsheath were placed and visualized under fluoroscopic guidance. I made a small skin incision in the neck and passed the introducer sheath and the guidewires down into the IVC under fluoroscopic guidance. I then certainly dilated the tract and then positioned catheter over the wires of the right and the tip of the right atrium SVC junction. The right chest wall was anesthetized. A small stab incision was made there. The catheter was then tunneled on the right chest wall under fluoroscopic guidance to ensure no kink or twist. The catheter was then tailored to length. Both ports were applied. Both ports aspirated and flushed well. Both ports were then packed with concentrated heparin. Catheter was then secured to the chest wall with a 3-0 Monocryl suture and the neck incision closed with 3-0 Monocryl suture. Sterile dressing was applied. All counts reported as correct x 2. She tolerated the procedure well and transferred to recovery in stable condition. The catheter may be used immediately for dialysis needs. <ELECTRONICALLY SIGNED> By: Dick Snyder MD 10/05/19 1057 0925 [id number] Fletcher DO /nt
[2019-10-05 13:08] LABS: GLOBULIN TOTAL 2.7 g/dL (2.2-3.9); M-SPIKE Not Observed g/dL (Not Observed)
[2019-10-05 13:08] LABS: URINE PROTEIN (MG/DL) 143.9 mg/dL (Not Estab.)
[2019-10-05 14:00] VITALS: BP 114/78
[2019-10-05 15:00] VITALS: BP 111/62
[2019-10-05 17:11] VITALS: BP 114/78
--- NOTE | 2019-10-05 17:26 | NUR ---
Dialysis confirmation is still pending with [facility]; SW to fax more needed info to admissions. SW received copy of needed forms for Medicaid process that pt had signed and they were also faxed to [employer] yesterday at fax [phone]; SW to confirm they were actually received. SW to continue to follow to assist with safe dc plan.
--- NOTE | 2019-10-05 17:35 | NUR ---
ASSUMED CARE OF THE PT @ 0700. PT IS A/OX4. DENIES PAIN THE AM. C/O CONSTIPATION. PRN LAXATIVES GIVEN. PT NSR ON TELE. B/P ELEVATED 160S BEFORE AM MEDS. RT CHEST DIALYSIS CATH INTACT. DRESSING C/D/I. PT AMBULATED TO BR WITH ASSISTX X1 IN SLOW STEADY GAIT. CONTINUES ON IV IRON. LT WRIST IV PATENT. IV REMOVED FROM LT UA. THE AFTERNOON AT AROUND 1PM THE PT ASKED TO GO TO THE BR. UPON WALKING TO THE BM WITH MYSELF THE NURSE, THE PTS LEGS GAVE OUT. THE PT WAS LOWERED TO THE FLOOR BY MYSELF AND ENDED SITTING ON HER BOTTOM. THE PT HAS NO INJURIES. DENIES PAIN OR DISCOMFORT. DR COPELAND NOTIFIED. NEW ORDERS FOR AM LBS. WILL NOTIFY FAMILY AND PLACE AND INCIDENT REPORT. SEEN BY THE CERTIFIED ADAPTED PHYSICAL EDUCATOR. B/P MED WERE ADJUSTED THIS AM. B/P DOWN 110S AND HR IN UPPER 40S. MEDS ADJUSTED AFTER CARDIOLOIGT VISIT THE EVENING. PT APPETIE POOR TODAY. C/O NAUSEA. IV NAUSEA MEDS GIVEN. PT IS RESTING QUIETLY AT THIS TIME WITH THE CALL LIGHT IN REACH. BED LOW AND LOCKED. WILL CONTINUE TO MONITOR.
[2019-10-05 20:00] VITALS: BP 90/48
[2019-10-06 00:30] VITALS: BP 158/67
[2019-10-06 02:09] LABS: HEMATOCRIT 32.1 % (37.0-47.0); MCH 33.2 pg (26.0-34.0); MCHC 33.6 g/dL (28.0-37.0); MPV 9.1 fl. (7.2-11.1); RBC 3.24 mil/uL (4.20-5.00); RDW-CV 16.5 % (10.5-14.5); WBC 17.9 thou/uL (4.0-11.0)
[2019-10-06 02:10] LABS: HEMOGLOBIN 10.8 gm/dL (12.0-15.0)
[2019-10-06 02:52] LABS: ALBUMIN 2.8 g/dL (3.4-5.0); MAGNESIUM 2.3 mg/dL (1.8-2.4)
[2019-10-06 02:56] LABS: CREATININE 5.8 mg/dL (0.6-1.3); POTASSIUM 4.9 mmol/L (3.5-5.1)
[2019-10-06 04:00] VITALS: BP 92/55
--- NOTE | 2019-10-06 05:48 | NUR ---
Alert and oriented x 4. She has complained of pain in her abdomen. She did have hydrocodone and that help she stated. She is able to reposition herself and her skin is intact. Vitals are stable,BP and HR were low and reported to Dr Aviles and meds were held. I did speak with the daughter last evening and this morning. She wants to talk to the patient's dr today. She has slept well.
[2019-10-06 08:00] VITALS: BP 158/77
[2019-10-06 12:33] VITALS: BP 139/687
--- NOTE | 2019-10-06 15:51 | NUR ---
RYLAND followed up with [facility] who said they were needing to push the start date out because they were still verifying financials. RYLAND faxed flow sheets and spoke with Shani. Then RYLAND spoke with Eugenio to discuss reason pt not on Medicare and that pt will most likely qualify for Medicaid. Eugenio said that was what he needed to discover. RYLAND faxed the signed forms to Janel at [facility] that should aid in the process of pending Medicaid. RYLAND anticipating [facility] to be able to approve pt referral; SW to follow up again with [facility] to attempt to finalize dialysis arranged and assist with finalizing safe dc plan.
[2019-10-06 16:00] VITALS: BP 116/58
--- NOTE | 2019-10-06 18:47 | NUR ---
ASSUMED CARE OF THE PT @ 0700. PT C/O OF STOMACH CRAMPING. ABD TENDER. HEATING PAD APPLIED. PT HAS PO PAIN MEDS. NO NAUSEA. PT HAD DIALYSIS THIS AM. 250CC TAKEN OFF. PT SLEEPY AFTER DIALYSIS. APPETITE POOR DURING LUNCH. CALLED THE KITCHEN AND GOT THE PT SOUP AND SANDWICH FOR DINNER. PT ATE 75%. PT HAS NO C/O STOMACH DISCOMFORT AT REST. HEATING PAD REMAINS. RT CHEST DIALYSIS CATH IS INACT WITH CLEAR DRESSING. UP TO THE BSC WITH ASSIST X1. PT IS A FALL RISK. BED ALARM IS ON. BED LOW AND LOCKED. CALL LIGHT IS IN REACH. PT SLEEPING QUIETLY AT THIS TIME.WILL CONTINUE TO MONITOR.
[2019-10-06 21:00] VITALS: BP 59/38
[2019-10-07] VITALS: BP 123/52
[2019-10-07 04:15] VITALS: BP 135/52
--- NOTE | 2019-10-07 06:27 | NUR ---
Oriented x 4 but drowsy. At start of the shift her BP was low. New IV was started in rt forearm,22 gauge at 2150. Order for IV normal saline bolus from Dr js Abernathy. After bolus BP improved. She is on O2 at 3L n/c,O2 sat was in the 80's at midnight on 2L n/c. She is Sinus rythym on the monitor. Pain med given x 1 this shift but she did say that abdominal pain has improved. This am I spoke with her daughter Mckenna and she voiced concerns about abdominal pain and hoped that the patient could get a GI consult while she was here. She has slept well.
[2019-10-07 08:00] VITALS: BP 126/54
[2019-10-07 12:00] VITALS: BP 139/55
--- NOTE | 2019-10-07 13:24 | NUR ---
RYLAND followed up with [facility] clinic and spoke with Christina. RYLAND faxed latest flow sheet to Christina who plans to check on the status of being able to confirm if pt accepted now and chair time/schedule. RYLAND to continue to follow to assist with finalizing safe dc plan once [facility] confirms acceptance.
--- NOTE | 2019-10-07 14:38 | NUR ---
ASSESSEMENT COMPLETED DOCUMENTED THIS MORNING. PATIENT HAS A VERY POOR APPETITE, NOTHING FOR BREAKFAST, AND TOMATO SOUP FOR LUNCH. ATTEMPTED TO PERFORM STAIRS WITH PHYSICAL THERAPY AND BECAME TOO WEAK TO COMPLETE TASK. DULCOLAX SUPP GIVEN ORDERED, AND C/O ABD PAIN/TENDERNESS...HYDROCODONE 1 TAB GIVEN WITH RELIEF NOTED.
[2019-10-07 15:54] VITALS: BP 132/56
--- NOTE | 2019-10-07 16:22 | NUR ---
ASSUMED CARE OF PATIENT AT 1500 FROM WILMAR HO. VITALS OBTAINED AND PATIENT NOTED TO BE 85% ON 2.5L NC, 02 SAT UP TO 90% ON 3.5L. RT NOTIFIED THAT PATIENT 02 INCREASED. AWAITING RESULTS OF VEIN MAPPING US. NO COMPLAINTS AT THIS TIME. CALL LIGHT WITHIN REACH.
[2019-10-07 20:00] VITALS: BP 104/51
[2019-10-08] VITALS (8 sets, daily range): BP systolic 57–142; BP diastolic 36–56
--- NOTE | 2019-10-08 05:08 | NUR ---
POOR APPETITE, ONLY TEA FOR DINNER. PT ON 3.5L O2 BY NC. BP SOFT. NO C/O PAIN. PT UP TO BSC WITH STANDBY ASSIST. HAD SMALL BM LAST NIGHT. PT SLEEPING/RESTING THROUGH THE NIGHT. CALL LIGHT WITHIN REACH. BED ALARM ON FOR SAFETY. WILL CONTINUE TO MONITOR.
[2019-10-08 05:38] LABS: HEMATOCRIT 23.3 % (37.0-47.0); MCH 33.2 pg (26.0-34.0); MCHC 33.5 g/dL (28.0-37.0); MCV 99.2 fL (80.0-100.0); MPV 9.6 fl. (7.2-11.1); RBC 2.35 mil/uL (4.20-5.00); RDW-CV 16.7 % (10.5-14.5); WBC 13.1 thou/uL (4.0-11.0)
[2019-10-08 05:41] LABS: HEMOGLOBIN 7.8 gm/dL (12.0-15.0)
[2019-10-08 05:51] LABS: PROTIME 10.5 Seconds (9.20-11.50)
[2019-10-08 05:54] LABS: ALBUMIN 2.2 g/dL (3.4-5.0); CALCIUM 8.5 mg/dL (8.5-10.1); CREATININE 5.8 mg/dL (0.6-1.3); PHOSPHORUS* 7.6 mg/dL (2.5-4.9); POTASSIUM 5.3 mmol/L (3.5-5.1)
--- NOTE | 2019-10-08 08:44 | NUR ---
0730 ASSUMED CARE OF PATIENT. PLEASE SEE DOCUMENTED ASSESSMENT. PT IS SOMNALENT BUT ORIENTED. OXYGEN TITRATED UP TO 5LPM TO OBTAIN SAT OF 91%.
--- NOTE | 2019-10-08 08:46 | NUR ---
0820 TO DIALYSIS PER BED.
--- NOTE | 2019-10-08 15:26 | NUR ---
PT MAKING SLOW PROGRESS TOWARDS GOALS. DILAYZED AGAIN TODAY WITH REMOVAL OF ONE LITER OF FLUIDS. APPETITE IS POOR BUT IMPROVING. TITRATED UP ON OXYGEN TO 5LPM NASAL CANNULA. FOUND ONCE WITH OXYGEN OFF. CONSTIPATION TREATED BUT NO RESULTS YET. VSS. NO CALLS FROM FAMILY TODAY.
--- NOTE | 2019-10-08 18:10 | NUR ---
PT TRANSFERRED TO MY CARE. PT ALERT AND ORIENTED. PT TRANSFERRED UP TO TELE. FALL RISK PRECAUTIONS IN PLACE. HOURLY ROUNDING COMPLETED. WILL CONTINUE TO MONITOR.
[2019-10-08 20:42] LABS: BE 0.5 mmol/L (-2 to +3); PCO2 31.6 mmHg (35.0-45.0); pH 7.488 (7.340-7.450)
[2019-10-08 20:46] LABS: PO2 53.8 mmHg (75.0-100.0)
--- NOTE | 2019-10-08 23:02 | NUR ---
REPORT RECIEVED FROM DAY SHIFT. ASSESSMENT DOCUMENTED. LOW BP AND O2 SAT NOTED ON ASSESSMENT, PT REPORTS BEING DROWZY AND DIFFICUTLY KEEPING EYES OPEN, BUT OTHERWISE A&O. NOTIFIED, ORDERS RECIEVED. PT ON NON-REBREATHER TO KEEP SATS AT 92%. NOTIFIED OF ABG AND CXR RESULTS, ADDITIONAL ORDERS RECIEVED. REPORT GIVEN TO WOOD PRESERVING PLANT LABORER, PT TRANSFERED TO ROOM 04 IN ICU.
[2019-10-09] VITALS (28 sets, daily range): BP systolic 82–151; BP diastolic 43–85
--- NOTE | 2019-10-09 04:28 | NUR ---
RECIEVED PT FROM TELE ARROUND 2330H, ON NRB MASK AT 10LPM. EASLY DESATURATING WITHOUT THE MASK. BP WAS SOFT BUT MAP ABOVE 60, LEVO NOT STARTED. NO DISTRESS NOR BLEEDING NOTED. INSTRUCTED TO COUGH OR DO DEEP BREATHING EXERCISE. PT WAS FIORGETFUL ONCE IN MY SHIFT.CONTINUE MONITORING AND TOWARD GOALS. THEY WILL DO ANOTHER DIALYSIS TODAY PER REPORT.
[2019-10-09 04:29] LABS: HEMATOCRIT 23.6 % (37.0-47.0); MCH 33.4 pg (26.0-34.0); MCHC 33.7 g/dL (28.0-37.0); MCV 98.9 fL (80.0-100.0); MPV 8.9 fl. (7.2-11.1); RBC 2.38 mil/uL (4.20-5.00); RDW-CV 17.3 % (10.5-14.5)
[2019-10-09 04:37] LABS: PROTIME 10.7 Seconds (9.20-11.50)
[2019-10-09 04:50] LABS: CALCIUM 7.8 mg/dL (8.5-10.1); MAGNESIUM 1.7 mg/dL (1.8-2.4); PHOSPHORUS* 4.8 mg/dL (2.5-4.9)
[2019-10-09 04:51] LABS: CREATININE 3.5 mg/dL (0.6-1.3); POTASSIUM 4.1 mmol/L (3.5-5.1)
--- NOTE | 2019-10-09 18:18 | NUR ---
PT ASSESSMENT CHARTED. VSS THROUGHOUT SHIFT. ABLE TO TITRATE O2 TO 8L HIGH FLOW NC. UP TO CHAIR FOR MEALS. NO COMPLAINTS OF PAIN. HEPARIN DRIP INITIATED THIS MORNING. NEXT APTT TO BE DRAWN AT 2200. NO OTHER COMPLAINTS. DIALYSIS IS SCHEDULED FOR TOMORROW.
[2019-10-10] VITALS (18 sets, daily range): BP systolic 104–187; BP diastolic 56–91
--- NOTE | 2019-10-10 04:13 | NUR ---
ASSUMED CARE AT 1900H, ON HIFLOW NC AT 8LPM AND DECREASED TO 4LPM AND TOLERATED. ON HEPARIN DRIP. NO BLEEDING, NO HYPOTENSION AND NO RESPIRATORY DISTRESS NOTED. STILL WITH CONFUSION SOMETIMES. PT VOIDED VIA COMMODE AND TOLERATED. CONTINUE MONITORING AND TOWARD GOALS.
[2019-10-10 05:31] LABS: HEMATOCRIT 25.6 % (37.0-47.0); HEMOGLOBIN 8.5 gm/dL (12.0-15.0); MCH 32.9 pg (26.0-34.0); MCHC 33.1 g/dL (28.0-37.0); MCV 99.5 fL (80.0-100.0); MPV 8.5 fl. (7.2-11.1); RBC 2.57 mil/uL (4.20-5.00); RDW-CV 16.4 % (10.5-14.5); WBC 14.9 thou/uL (4.0-11.0)
[2019-10-10 05:41] LABS: PROTIME 10.3 Seconds (9.20-11.50)
[2019-10-10 05:43] LABS: APTT 55.5 Seconds (25.0-31.3)
[2019-10-10 05:52] LABS: CALCIUM 7.4 mg/dL (8.5-10.1); MAGNESIUM 1.7 mg/dL (1.8-2.4); POTASSIUM 3.8 mmol/L (3.5-5.1)
[2019-10-10 05:53] LABS: CREATININE 4.8 mg/dL (0.6-1.3)
--- NOTE | 2019-10-10 14:00 | NUR ---
RECEIVED FAX FROM [facility] WITH TENTATIVE CHAIR TIME FOR M-W-F AT 4:15 PM. THEY STILL HAVE LAB RESULTS TO REVIEW. WILL CHECK BACK ON .
--- NOTE | 2019-10-10 18:04 | NUR ---
PT TO ROOM 212 VIA BED AT 1800 DAUGHTER GWENDOLYN NOTIFIED.
[2019-10-11 00:31] VITALS: BP 92/69
[2019-10-11 04:00] VITALS: BP 183/72
[2019-10-11 04:26] LABS: HEMATOCRIT 25.9 % (37.0-47.0); HEMOGLOBIN 8.7 gm/dL (12.0-15.0); MCH 33.1 pg (26.0-34.0); MCHC 33.7 g/dL (28.0-37.0); MCV 98.4 fL (80.0-100.0); MPV 8.5 fl. (7.2-11.1); RBC 2.63 mil/uL (4.20-5.00); RDW-CV 16.6 % (10.5-14.5); WBC 13.7 thou/uL (4.0-11.0)
--- NOTE | 2019-10-11 04:49 | NUR ---
PT SLEPT MOST OF SHIFT. ASSESSMENT DOCUMENTED. MEDS GIVEN PER E-AUG. IV PATENT, HEPARN DRIP RUNNING. PT UP TO BSC THIS SHIFT. ONE BOWEL MOVEMENT THROUGH NIGHT. FALL PRECAUTIONS IN PLACE. WILL CONTINUE WITH PLAN OF CARE.
[2019-10-11 04:55] LABS: APTT 51.9 Seconds (25.0-31.3); PROTIME 10.7 Seconds (9.20-11.50)
[2019-10-11 04:56] LABS: ALBUMIN 2.1 g/dL (3.4-5.0); CALCIUM 7.9 mg/dL (8.5-10.1); MAGNESIUM 1.7 mg/dL (1.8-2.4); PHOSPHORUS* 4.2 mg/dL (2.5-4.9)
[2019-10-11 05:01] LABS: CREATININE 3.5 mg/dL (0.6-1.3)
[2019-10-11 08:14] VITALS: BP 154/80
--- NOTE | 2019-10-11 09:27 | NUR ---
Therapies reordered, acute rehab consult pending. CM faxed chair time letter for dialysis at [facility] to [facility] to be placed on Pt's chart.
[2019-10-11 12:07] VITALS: BP 110/68
--- NOTE | 2019-10-11 14:32 | EKG ---
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 : 1950 Requested By: Order Number: [id number] Estevan MD: Flavio Rowley Measurements Intervals [employer] Rate: 55 P: NM: QRS: 25 QRSD: 132 T: 25 QT: 618 QTc: 592 Interpretive Statements Junctional rhythm IVCD, consider atypical LBBB Baseline wander in lead(s) V4 Compared to ECG 10/01/2019 22:19:25 Junctional rhythm now present Sinus rhythm no longer present Electronically Signed On 10-11-2019 14:30:50 CDT by Flavio Rowley [email or web address] <ELECTRONICALLY SIGNED> By: Flavio Rowley MD, FAC 10/11/19 1430 1058 1058 Flavio Rowley MD, [facility] /EPI
--- NOTE | 2019-10-11 14:53 | NUR ---
CM received calls from Pt's nurse and nephrology, informing that Pt's dtr is upset that she has not been able to reach a CM. CM contacted Pt's dtr, answered questions and updated on POC, dtr in agreement with POC. CM contacted [facility] BS per dtr's request to see if they have a TTS schedule available. Per Christina at [facility], they do not have a TTS schedule, but they did put Pt on the waitlist. CM updated dtr. Plan for Pt to dc to acute rehab once medically stable. CM provided dtr with CM contact info.
--- NOTE | 2019-10-11 16:16 | NUR ---
RE: Pharmacy warfarin dosing. Pt on day 4 warfarin, with heparin gtt bridge. 10/11/19 INR = 1.0. Note dose increase. Will follow, thank you.
[2019-10-11 16:18] VITALS: BP 100/66
--- NOTE | 2019-10-11 18:39 | NUR ---
ASSUMED CARE OF PT AROUND 0730 THIS AM. REFER TO ASSESSMENT. PT TITRATED TO 2L/NC THIS SHIFT. TOLERATING WELL. CASE MANAGEMENT DISCUSSED PLAN OF CARE WITH PT'S DAUGHTER THIS SHIFT. TELE SR. NO OTHER CONCERNS AT THIS TIME. CLWR. WCTM.
[2019-10-12 00:15] VITALS: BP 178/60
[2019-10-12 04:19] LABS: HEMOGLOBIN 9.6 gm/dL (12.0-15.0); MCH 33.5 pg (26.0-34.0); MCHC 34.4 g/dL (28.0-37.0); MCV 97.6 fL (80.0-100.0); MPV 8.1 fl. (7.2-11.1); RBC 2.87 mil/uL (4.20-5.00); RDW-CV 16.2 % (10.5-14.5); WBC 13.5 thou/uL (4.0-11.0)
[2019-10-12 04:27] VITALS: BP 120/61
--- NOTE | 2019-10-12 04:33 | NUR ---
ASSUMED CARE OF PT AT 1900, PT IS ALERT AND ORIENTED. VSS. PERRLA. NO COMPLAINTS OF PAIN. PT HAS HEP GTT AT 550 UNITS. PT IS IN SINUS RYTHM ON THE TELEMETRY. PT IS RESTING COMFORTABLY IN BED. RESPIRATIONS ARE EVEN AND NONLABORED. WILL CONTINUE TO MONITOR PT.
[2019-10-12 04:48] LABS: PROTIME 19.2 Seconds (9.20-11.50)
[2019-10-12 04:50] LABS: INR 1.9
[2019-10-12 05:19] LABS: CALCIUM 7.9 mg/dL (8.5-10.1); MAGNESIUM 1.7 mg/dL (1.8-2.4); PHOSPHORUS* 3.8 mg/dL (2.5-4.9); POTASSIUM 3.7 mmol/L (3.5-5.1)
[2019-10-12 05:34] LABS: CREATININE 5.1 mg/dL (0.6-1.3)
--- NOTE | 2019-10-12 07:22 | NUR ---
ppt is 45. pt increased to 655 units per hr. 1500 unit bolus given.
[2019-10-12 08:00] VITALS: BP 117/63
--- NOTE | 2019-10-12 08:27 | NUR ---
CM messaged rehabilitation services manager to see if they are planning to accept Pt for acute rehab at dc, awaiting decision. Anticipate dc soon. CM to updated [facility] BS and dtr of dispo
--- NOTE | 2019-10-12 11:26 | NUR ---
Dr Lomas to eval Pt today for acute rehab. Per , Pt is still on Heparin, working to bridge to Coumadin, then Pt will be ready to dc to acute rehab. Following.
[2019-10-12 12:00] VITALS: BP 174/67
[2019-10-12 19:45] VITALS: BP 98/63
[2019-10-13] VITALS: BP 87/51
[2019-10-13 04:00] VITALS: BP 90/54
--- NOTE | 2019-10-13 05:05 | NUR ---
ASSUMED CARE OF PT AT 1900. PT IS ALERT AND ORIENTED. VSS. PERRLA. NO COMPLAINTS OF PAIN. PT HAS HAD MULTIPLE BOWEKL MOVEMENTS. ALL HAVE BEEN FORMED EXCEPT 1 LOOSE STOOL THIS AM. PT IS IN SINUS RYTHM ON THE TELEMETRY. PT IS RESTING COMFORTABLY IN BED. RESPIRATIONS ARE EVEN AND NONLABORED. WILL CONTINUE TO MONITOR PT.
[2019-10-13 07:38] LABS: PROTIME 70.1 Seconds (9.20-11.50)
[2019-10-13 08:00] VITALS: BP 126/63
[2019-10-13 08:02] LABS: INR 7.4
--- NOTE | 2019-10-13 12:30 | NUR ---
Pt off heparin gtt, Pt will be medically stable to dc to acute rehab tomorrow. CM updated rehab trainer. CM updated Pt'd dtr, dtr in agreement with POC. Following.
[2019-10-13 12:44] VITALS: BP 115/78
[2019-10-13 16:33] VITALS: BP 155/59
[2019-10-13 19:50] VITALS: BP 150/65
[2019-10-14] VITALS: BP 138/60
[2019-10-14 04:00] VITALS: BP 129/55
[2019-10-14 04:51] LABS: ABSOLUTE EOSINOPHILS 0.4 thou/uL (0.0-0.7); ABSOLUTE LYMPHOCYTES 1.6 thou/uL (0.8-5.3); ABSOLUTE MONOCYTES 1.1 thou/uL (0.0-1.2); ABSOLUTE NEUTROPHILS 12.7 thou/uL (1.6-8.1); BASOPHILS 0.2 %; EOSINOPHILS 2.7 %; LYMPHOCYTES 10.3 %; MCH 32.8 pg (26.0-34.0); MCHC 33.5 g/dL (28.0-37.0); MONOCYTES 7.1 %; MPV 8.1 fl. (7.2-11.1); NUCLEATED RBCS 0 /100WBC; PLATELET COUNT* 273 thou/uL (150-400); POLYS 79.7 %; RBC 2.45 mil/uL (4.20-5.00); RDW-CV 16.5 % (10.5-14.5); WBC 15.9 thou/uL (4.0-11.0)
[2019-10-14 05:08] LABS: PROTIME 139.7 Seconds (9.20-11.50)
[2019-10-14 05:10] LABS: CALCIUM 7.7 mg/dL (8.5-10.1); CREATININE 4.7 mg/dL (0.6-1.3); PHOSPHORUS* 3.2 mg/dL (2.5-4.9); POTASSIUM 3.5 mmol/L (3.5-5.1)
[2019-10-14 05:16] LABS: INR 15.1
--- NOTE | 2019-10-14 05:44 | NUR ---
PATIENT'S INR REMAINS ELEVATED THIS MORNING, PHYSICIAN NOTIFIED. NO NEW ORDERS RECEIVED AT THIS TIME. PATIENT DENIES PAIN AND DISCOMFORT. FALL PRECAUTIONS CONTINUED DUE TO HIGH INR. CALL LIGHT WITHIN REACH
[2019-10-14 08:26] VITALS: BP 109/69
--- NOTE | 2019-10-14 12:49 | NUR ---
Per , Pt PT/INR elevated, not medically stable to [facility] today. Pt receiving dialysis today. Plan is for Pt to go to acute rehab at [place], bed will be available on Thursday. Updated Pt's dtr of POC.
[2019-10-14 13:44] LABS: PROTIME 147.4 Seconds (9.20-11.50)
[2019-10-14 13:46] LABS: INR 15.9
[2019-10-14 17:01] VITALS: BP 85/54
--- NOTE | 2019-10-14 19:03 | NUR ---
PT. AOX4, VSS, DENIES PAIN, SR 70 ON MONITOR. HEMODIALYSIS THIS AM. 2L REMOVED. STANDBY ASSIST TO BATHROOM, HOURLY ROUNDING PERFORMED. CALL LIGHT AND PERSONAL BELONGINGS WITHIN REACH.
[2019-10-14 19:40] VITALS: BP 120/65
[2019-10-14 21:15] LABS: PROTIME 19.4 Seconds (9.20-11.50)
[2019-10-14 21:17] LABS: INR 1.9
[2019-10-14 23:45] VITALS: BP 108/53
[2019-10-15 04:00] VITALS: BP 137/66
[2019-10-15 04:50] LABS: ABSOLUTE EOSINOPHILS 0.5 thou/uL (0.0-0.7); ABSOLUTE LYMPHOCYTES 1.8 thou/uL (0.8-5.3); ABSOLUTE MONOCYTES 1.1 thou/uL (0.0-1.2); ABSOLUTE NEUTROPHILS 13.1 thou/uL (1.6-8.1); BASOPHILS 0.2 %; EOSINOPHILS 2.9 %; HEMATOCRIT 25.2 % (37.0-47.0); HEMOGLOBIN 8.3 gm/dL (12.0-15.0); LYMPHOCYTES 10.8 %; MCH 32.5 pg (26.0-34.0); MCHC 32.8 g/dL (28.0-37.0); MCV 98.9 fL (80.0-100.0); MONOCYTES 6.7 %; MPV 7.8 fl. (7.2-11.1); NUCLEATED RBCS 0 /100WBC; PLATELET COUNT* 320 thou/uL (150-400); POLYS 79.4 %; RBC 2.55 mil/uL (4.20-5.00); RDW-CV 17.3 % (10.5-14.5); WBC 16.5 thou/uL (4.0-11.0)
[2019-10-15 05:06] LABS: INR 1.3
[2019-10-15 05:27] LABS: ALBUMIN 2.1 g/dL (3.4-5.0); CALCIUM 7.7 mg/dL (8.5-10.1); POTASSIUM 3.7 mmol/L (3.5-5.1); TOTAL BILIRUBIN 0.3 mg/dL (<0.1-1.0); TOTAL PROTEIN 5.8 g/dL (6.4-8.2)
[2019-10-15 05:28] LABS: CREATININE 3.4 mg/dL (0.6-1.3)
--- NOTE | 2019-10-15 05:33 | NUR ---
PATIENT PROGRESSING TOWARDS GOALS: REMAINS ON 2L O2 NC WITH O2 SATURATION WNL. PATIENT STATES SHE "JUST WANTS TO SLEEP BECAUSE DIALYSIS WORE HER OUT." PATIENT ACHIEVED THIS GOAL AND WAS ABLE TO SLEEP A MAJORITY OF THE SHIFT, DESPITE INTERRUPTIONS FOR ROUTINE NURSING CARE. PATIENT HAD PAIN IN RIGHT CHEST DIALYSIS CATH SITE FROM PREVIOUS DRESSING CHANGE. PAIN RELIEVED WITH COLD COMPRESS AND MEDICATION PER AUG. CALL LIGHT WITHIN REACH
[2019-10-15 08:00] VITALS: BP 99/60
[2019-10-15 12:00] VITALS: BP 145/73
[2019-10-15 16:00] VITALS: BP 108/76
--- NOTE | 2019-10-15 18:50 | NUR ---
PT. VSS, AOX4, STANDBY ASSIST TO BATHROOM. PLEASANT AFFECT, WATCHING TV IN BED AT THIS TIME. HOURLY ROUNDING PERFORMED. CALL LIGHT AND PATIENT BELONGINGS WITHIN REACH.
[2019-10-15 20:00] VITALS: BP 128/92
[2019-10-16] VITALS (16 sets, daily range): BP systolic 105–150; BP diastolic 54–79
[2019-10-16 04:31] LABS: HEMATOCRIT 24.4 % (37.0-47.0); MCH 32.5 pg (26.0-34.0); MCHC 32.9 g/dL (28.0-37.0); MCV 98.5 fL (80.0-100.0); MPV 7.3 fl. (7.2-11.1); RBC 2.47 mil/uL (4.20-5.00); RDW-CV 16.5 % (10.5-14.5); WBC 16.9 thou/uL (4.0-11.0)
[2019-10-16 04:49] LABS: INR 1.2
[2019-10-16 04:55] LABS: MAGNESIUM 1.6 mg/dL (1.8-2.4); PHOSPHORUS* 3.3 mg/dL (2.5-4.9); POTASSIUM 4.1 mmol/L (3.5-5.1)
[2019-10-16 05:03] LABS: CREATININE 4.7 mg/dL (0.6-1.3)
--- NOTE | 2019-10-16 05:21 | NUR ---
PATIENT PROGRESSING TOWARDS GOALS: PAIN AT DIALYSIS SITE FROM DRESSING CHANGE RELIEVED WITH COLD COMPRESS AND ORAL MEDICATION PER MAR. PATIENT HAS RESTED THROUGHOUT SHIFT. CALL LIGHT WITHIN REACH
--- NOTE | 2019-10-16 10:38 | NUR ---
PT IS ALERT AND ORIENTED.CHEF & OWNER IN PLACE.PT GOT UP TO BSC WITH DB2 DEVELOPER AND WENT INTO VTACH/ST. EKG COMPLETED.DOCTOR NOTIFIED-NEW ORDERS RECEIVED.PT REMAINS ON 2L O2 NC.VSS.PT TO TRANSFER TO ICU PER ORDERS.
--- NOTE | 2019-10-16 11:06 | NUR ---
REPORT CALLED TO NEELAM AND PT TRANSFER TO ICU BED 4.ALL BELONGINGS PACKED AND TAKEN WITH PT.
--- NOTE | 2019-10-16 12:51 | NUR ---
1110 RECEIVED PER BED FROM TELEMETRY. DR GOODWIN PRESENT. SEE REASSESSMENT. HEART MONITOR SHOWS SINUS AVINASH. ORDERS NOTED. SECOND IV PLACED URGENTLY BY ORALIA MASTERS RN. 02 AT 2LPM NASAL CANNULA.
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
--- NOTE | 2019-10-16 16:00 | NUR ---
1500 UP TO BSC WITH STANDBY ASSIST. NO ADVERSE EVENTS OR REACTION
--- NOTE | 2019-10-16 17:51 | NUR ---
PT PROGRESSING TOWARDS GOALS. CAME TO ICU POST TCHYARRYTHMIA AND HAS REMAINED IN STABLE SINUS BRADYCARDIA. DIET RESUMED AND UP TO BSC.APPETITE GOOD. 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 SPOKE ON PHONE WITH FAMILY.
[2019-10-17] VITALS (25 sets, daily range): BP systolic 76–139; BP diastolic 47–92
[2019-10-17 04:01] LABS: INR 1.5; PROTIME 15.5 Seconds (9.20-11.50)
[2019-10-17 04:04] LABS: CALCIUM 7.9 mg/dL (8.5-10.1); MAGNESIUM 1.7 mg/dL (1.8-2.4); PHOSPHORUS* 3.9 mg/dL (2.5-4.9); POTASSIUM 4.2 mmol/L (3.5-5.1)
[2019-10-17 04:08] LABS: CREATININE 5.7 mg/dL (0.6-1.3)
--- NOTE | 2019-10-17 06:53 | NUR ---
ASSUMED PATIENT CARE AT 1900. ASSESSMENTS COMPLETED CHARTED. ICU MONITORING IN PLACE. PATIENT HAD A VENTRICULAR RHYTHM DURING SHIFT, ASYMPTOMATIC, LASTED FOUR MINUTES. HOURLY ROUNDING IN PLACE FOR PATIENT SAFETY. CLWR.
--- NOTE | 2019-10-17 09:45 | NUR ---
ICU rounds: Pt went into Vtach yesterday, had another episode last night. Moved to the ICU. Doing ok today, rates are controlled. Pt receiving dialysis today. Plan continues to be for Pt to dc to [facility] acute rehab once medically stable. Outpt dialysis arranged with Brody TUCKER. Following.
--- NOTE | 2019-10-17 14:19 | EKG ---
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1883 : 1950 Requested By: Biju Diaz Order Number: [id number] Etsevan MD: Harlan Strong Measurements Intervals [place] Rate: 141 P: 0 GA: QRS: 141 QRSD: 205 T: -43 QT: 404 QTc: 619 Interpretive Statements Wide QRS tachycardia ST depression, consider ischemia, diffuse lds Compared to ECG 10/10/2019 10:58:44 Side QRS tach is noted ST (T wave) deviation now present Possible ischemia now present Junctional rhythm no longer present Electronically Signed On 10-17-2019 14:18:09 CDT by Harlan Strong [email or web address] <ELECTRONICALLY SIGNED> By: Harlan Strong MD, [facility] 10/17/19 1418 8 8 Harlan Strong MD, [facility] /EPI
[2019-10-17 15:09] LABS: CHOLESTEROL 118 mg/dL (<200); HDL CHOLESTEROL 49 mg/dL (>40); LDL CHOLESTEROL 54 mg/dL (<100); TC:HDL 2.4 Ratio (Not establshd); TRIGLYCERIDE 77 mg/dL (<150); VLDL 15 mg/dL (<40)
[2019-10-17 15:11] LABS: SERUM ASSESSMENT Clear
--- NOTE | 2019-10-17 16:37 | EKG ---
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
--- NOTE | 2019-10-17 16:38 | EKG ---
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
--- NOTE | 2019-10-17 19:20 | NUR ---
HEMODIALYSIS DONE TODAY, UF 2.5L. OUT OF BED STB ASSIST. TOLERATING DIET. BM TODAY. SR THE WHOLE DAY. VSS. PLAN STRESS TEST TOMMOROW.
[2019-10-18] VITALS (13 sets, daily range): BP systolic 98–168; BP diastolic 45–100
[2019-10-18 03:21] LABS: HEMOGLOBIN 7.7 gm/dL (12.0-15.0); WBC 13.1 thou/uL (4.0-11.0)
[2019-10-18 04:18] LABS: MCH 33.2 pg (26.0-34.0); MCHC 33.4 g/dL (28.0-37.0); MCV 99.5 fL (80.0-100.0); MPV 7.5 fl. (7.2-11.1); RBC 2.31 mil/uL (4.20-5.00); RDW-CV 16.8 % (10.5-14.5)
[2019-10-18 04:52] LABS: CALCIUM 7.8 mg/dL (8.5-10.1)
--- NOTE | 2019-10-18 05:09 | NUR ---
PT. PROGRESSING TOWARDS GOALS. UP TO BSC SBA. 150CC URINE OUTPUT. PT. TO HAVE STRESS TEST TODAY, AWARE OF NO CAFFEINE AND WATER ONLY. ALERT AND ORIENTED, SLEPT WELL THROUGHOUT SHIFT. WILL CONTINUE TO MONITOR.
--- NOTE | 2019-10-18 10:01 | NUR ---
ICU rounds: Pt to have stress test today, then will be tele status. CM updated Pt's dtr of POC and plan to get Pt to acute rehab once medically stable. Following.
--- NOTE | 2019-10-18 15:32 | CARDNUC ---
[place] [address] CARDIAC NUCLEAR IMAGING REPORT Name: BARRETT OBANDO Shania Room: [address] IN [facility]#: [id number] Admission: 09/30/19 Attend Phys: Biju Diaz, Discharge: Date of : 54 Date of Service: 10/18/19 1530 Report #: [id number] THIS REPORT FOR: cc: FAM - No family physician/PCP FAM - No family physician/PCP Flavio Rowley MD [facility] ~ APPROVED REPORT Imaging Protocol: Rest Tc-99m/Stress Tc-99m 1 day Study performed: 10/17/2019 14:43:00 Indication: SVT, Wide complex Tachycardia, CERVANTES. Patient Location: In-Patient Room #: ICU 4 Stress Tech: Shani Ceballos Stress Nurse: Julienne Larson RN NM Tech:ELMO Batista Ht: 5 ft 3 in Wt: 110 lbs BSA: 1.50 m2 BMI: 19.48 Medical History Medical History: CERVANTES, Wide complex tachycardia, SVT, ESRD/Dialysis, Pneumonia, 2L O2 NC, HTN, HLD, former smoker. Medications: Atorvastatin, Lasix, Coumadin, Hydralazine. Allergies: Codeine, Sulfamethoxazole, Chlorpheniramine. Cardiac Risk Factors: Age, FHX of CAD, HTN, Hyperlipidemia, SOB, Past Smoker, ESRD. Previous Cardiac Procedures: None Pretest Chest Pain Characteristics: No chest pain Exercise History: Indeterminate Physical Disabilities: Weak, Fatigue, O2 NC. Meds Held (24 hrs): None Resting Data Rest SPECT myocardial perfusion imaging was performed in supine position 30 minutes following the intravenous injection of 10.0 mCi of Tc-99m Sestamibi. Time of rest injection: 1005 Date: 10/18/2019 The images were gated to evaluate regional wall motion and calculate left ventricular ejection fraction. Administration Route: IV Administration Site: [place] [address] CARDIAC NUCLEAR IMAGING REPORT Name: BARRETT OBANDO Room: [address] IN [facility]#: [id number] Admission: 09/30/19 Attend Phys: Biju Diaz, Discharge: Date of : 54 Date of Service: 10/18/19 1530 Report #: [id number] Pharmacologic Stress Pharmacologic stress test was performed by injecting Regadenoson 0.4 mg IV push over 10-15 seconds immediately followed by the intravenous injection of 33.7 mCi of Tc-99m Sestamibi. Time of stress injection: 1140 Date: 10/18/2019 Administration Route: IV Administration Site: Right Arm Gated Stress SPECT was performed 40 minutes after stress injection. The images were gated to evaluate regional wall motion and calculate left ventricular ejection fraction. Stress only was performed in the Supine position. Stress Test Details Stress Test: Pharmacologic stress testing performed using 0.4 mg of regadenoson per 5 mL given IV over 10 seconds. Reason for pharmacologic stress test: Weak, fatigue, O2 NC.. 60 mg caffeine given for nausea. HR Max Heart Rate (APMHR): 153 bpm Resting HR: 68 bpm Target HR (85% APMHR): 130 bpm Max HR Achieved: 98 bpm % of APMHR: 64 Recovery HR: 71 bpm BP Resting BP: 136/78 mmHg Max BP: 124/86 mmHg Recovery BP: 174/111 mmHg ECG Resting ECG: Sinus Rhythm, nonspecific ST-T abnormalities Stress ECG: Sinus Rhythm, nonspecific ST-T abnormalities ST Change: None Arrhythmia: None Recovery ECG: Sinus Rhythm, nonspecific ST-T abnormalities Recovery ST Change: None Recovery Arrhythmia: None Clinical Reason for Termination: Completed protocol Stress Symptoms: Nausea, Dyspnea. Exercise duration: 00 min 00 sec Exercise capacity: 1.00 METs The patient tolerated Lexiscan infusion [place] [address] CARDIAC NUCLEAR IMAGING REPORT Name: BARRETT OBANDO Room: [address] IN ..#: [id number] Admission: 09/30/19 Attend Phys: Biju Diaz, Discharge: Date of : 54 Date of Service: 10/18/19 1530 Report #: [id number] Nurse Comments A 69 year old female inpatient presented for a sitting Lexiscan r/t SVT, Wide complex tachycardia, CERVANTES. Test tolerated. Recovery required 60 Mg IV push of caffeine to resolve nausea, effective. Patient was escorted via wheelchair by staff to her ICU room for lunch before completing Nuclear Medicine images. Staff nurse informed. Patient was stable and stated she felt good upon returning to ICU. Stress ECG Conclusion The baseline twelve-lead EKG shows sinus rhythm with intraventricular conduction delay. There is minimal downsloping ST segment depression noted in the anterolateral leads. EKGs obtained during and post Lexiscan infusion show sinus rhythm without significant ST segment or T wave changes when compared to baseline. There were no stress-induced arrhythmias. Study Quality Study: Good Artifact: Mild Breast artifact Study Data At rest, the left ventricular ejection fraction was 79%.. Post stress, the left ventricular ejection was 77%.. TID = 1.08. Perfusion Perfusion images obtained at rest and post Lexiscan stress show a moderate sized region of mild photopenia in the anterior wall that is more pronounced on resting and stress images. Review of the raw data show significant breast attenuation artifact. Wall motion in this region is normal. No other significant fixed or reversible defects were identified. Wall Motion Normal left ventricular wall motion. Nuclear Conclusion ECG Findings: non-diagnostic Clinical Findings: negative for ischemia Nuclear Findings: negative for ischemia Exercise Capacity: not assessed Left Ventricular Function: normal Risk Study: low Perfusion images show no reversible defect to suggest ischemia. The mild photopenia of the anterior wall appears [place] [address] CARDIAC NUCLEAR IMAGING REPORT Name: BARRETT OBANDO Room: [address] IN M.R.#: [id number] Admission: 09/30/19 Attend Phys: Biju Diaz, Discharge: Date of : 54 Date of Service: 10/18/191529 Report #: [id number] attenuation artifact. Global LV systolic function is normal with normal wall motion. This is a low risk study. <Conclusion> The baseline twelve-lead EKG shows sinus rhythm with intraventricular conduction delay. There is minimal downsloping ST segment depression noted in the anterolateral leads. EKGs obtained during and post Lexiscan infusion show sinus rhythm without significant ST segment or T wave changes when compared to baseline. There were no stress-induced arrhythmias. <ELECTRONICALLY SIGNED> By: Flavio Rowley MD, FACC 10/18/191529 29 29 Flavio Rowley MD, FACC /INF
--- NOTE | 2019-10-18 19:23 | NUR ---
PT SR THE WHOLE DAY. STRESS TEST COMPLETED TODAY. DENIES PAIN. OUT OF BED, STB ASSIST. SHE BAHTE HERSELF. TOLERATING DIET. BM TODAY. PROGRESSING TOWARDS GOALS.
[2019-10-19] VITALS (7 sets, daily range): BP systolic 114–157; BP diastolic 57–75
[2019-10-19 02:51] LABS: PROTIME 65.9 Seconds (9.20-11.50)
[2019-10-19 02:56] LABS: ALBUMIN 2.1 g/dL (3.4-5.0); CALCIUM 8.3 mg/dL (8.5-10.1); CREATININE 4.9 mg/dL (0.6-1.3); INR 6.9; PHOSPHORUS* 2.5 mg/dL (2.5-4.9); POTASSIUM 4.9 mmol/L (3.5-5.1)
--- NOTE | 2019-10-19 05:31 | NUR ---
VITALS STABLE, AFEBRILE. PT SLEPT THROUGH THE NIGHT. COMPLAINS OF DIALYSIS CATH SITE PAIN. BMX1, NO UOP. CALL LIGHT WITHIN REACH. ABLE TO MOVE SELF IN BED. WILL CONTINUE MONITORING.
[2019-10-19] MEDS ORDERED: COUMADIN 1MG TAB1 M1 PO (07:28)
[2019-10-19] MEDS ORDERED: HYDROCODON-ACE1 EAC7 PO (07:28)
[2019-10-19] MEDS ORDERED: NEPHRO-VITE TA0.8 MG PO (07:28)
[2019-10-19] MEDS ORDERED: RENVELA800 MG PO (07:28)
[2019-10-19] MEDS ORDERED: PULMICORT0.5 MG/2 M INH (07:28)
[2019-10-19] MEDS ORDERED: SENNA-TIME S T1 EACH PO (07:28)
[2019-10-19] MEDS ORDERED: CALCIUM CARBON200 M1 PO (07:28)
--- NOTE | 2019-10-19 13:41 | NUR ---
ICU rounds: DC orders written, Rehab Dr saw Pt today, Pt's INR is too high, does not want Pt to dc to rehab today. Pt received HD today.Pt is med surg status. PT to see.
--- NOTE | 2019-10-19 15:47 | NUR ---
HEMODIALYSIS DONE, UF 2L. TOLERATING DIET. BM TODAY. VOIDING PER BSC, STB ASSIST. REHAB DIDN'T APPROVE OF THE ADMISSION TODAY BECAUSE OF HIGH INR, PROVIDER AWARE. REPORT GIVEN TO WILMAR MOORE.
--- NOTE | 2019-10-19 17:47 | NUR ---
ASSUMED CARE OF PATIENT AT 1550. PATIENT SETTLED TO ROOM. PATIENT DENIES ANY PAIN. PATIENT SLEPT THIS AFTERNOON. PATIENT ALERT AND EATING DINNER AT THIS TIME. PATIENT DENIES ANY NEEDS AT THIS TIME. CALL LIGHT WITHIN REACH.
[2019-10-20 05:01] LABS: PROTIME 72.3 Seconds (9.20-11.50)
[2019-10-20 05:07] LABS: INR 7.6
--- NOTE | 2019-10-20 05:45 | NUR ---
PATIENT SLEPT MOST OF THE NIGHT. IV REMAINS SALINE LOCKED. PATIENT WAS GIVEN PAIN MEDICINE ONCE THIS SHIFT. WILL CONTINUE TO MONITOR.
[2019-10-20 07:55] VITALS: BP 168/78
--- NOTE | 2019-10-20 13:46 | NUR ---
CM updated Pt's dtr of POC, plan continues to be for Pt to dc to acute rehab once medically stable. Following.
--- NOTE | 2019-10-20 14:11 | NUR ---
RYLAND continuing to follow to assist with safe dc planning. RYLAND was informed that pt to be accepted to inpt rehab at dc but Dr Lomas initially stating he wants to see pt INR not above 4 before transitioning to inpt rehab unit. RYLAND informed Dr Diaz. SW to continue to follow.
--- NOTE | 2019-10-20 17:08 | NUR ---
PATIENT RESTING IN BED. PATIENT IS UP WITH STANDBY ASSIST TO BATHROOM. PATIENT GIVEN A SUPPOSITORY FOR CONSTIPATION THIS AFTERNOON, NO RESULTS AT THIS TIME. PATIENT HAS GOOD APPETITE. PATIENT IS AWAITING ACCEPTANCE TO REHAB UNIT. PATIENT DENIES ANY PAIN. PATIENT DENIES ANY NEEDS AT THIS TIME. CALL LIGHT WITHIN REACH.
[2019-10-20 17:30] VITALS: BP 141/101
[2019-10-20 20:00] VITALS: BP 117/82
[2019-10-21 04:56] LABS: PROTIME 69.6 Seconds (9.20-11.50)
[2019-10-21 04:58] LABS: INR 7.3
--- NOTE | 2019-10-21 05:54 | NUR ---
PT SLEPT WELL OVERNIGHT, RECEIVING PO PAIN MED AT HS FOR CO R ARM PAIN WITH GOOD RESULT. R CHEST TESSIO. R AND L LIMB ALERT. AOX4, ABLE TO USE CALL LITE AND MAKE NEEDS KNOWN. INR SLIGHTLY BETTER TODAY AT 7.3. RAC AND RFA SLIV. O2 2L. ESRD WITH DIALYSIS MWF. UP WITH SBA GB AND WALKER. ICE PACK PRN TO RCHEST PER PT REQUEST. CALL LITE IN EASY REACH, BED ALARM ON FOR SAFETY OVERNIGHT.
--- NOTE | 2019-10-21 08:00 | NUR ---
ASSUME CARE OF PT. PT IN DIALYSIS. ASSESSMENT COMPLETE. VSS
[2019-10-21 08:30] VITALS: BP 125/76
--- NOTE | 2019-10-21 13:07 | NUR ---
SPOKE WITH DR. KONG WHO STATES THAT PATIENT IS MEDICALLY STABLE FOR DISCHARGE TO REHAB TODAY. DR. RAI WILL NOT ACCEPT PATIENT AT THIS TIME PER INSPECTOR WEIGHTS AND MEASURES D/T ELEVATED INR AND IP REHAB GUIDELINES. CURRENT INR IS 7.3. PER GUIDELINES, "IF AN INR IS > 6.0 THE MEDICAL TEAM SHOULD CONSIDER BED REST OR DECREASING THE ACTIVITY LEVEL OF THE PATIENT UNTIL INR IS CORRECTED." D/T THE ABOVE CIRCUMSTANCES REFERRALS SENT TO [facility] AT [phone] AND [facility] AT [phone]. CLINICAL TEAM UPDATED. WILL AWAIT RESPONSE BACK FROM OUTSIDE IP REHAB FACILITIES FOR FURTHER DISCHARGE PLANNING NEEDS. CM TO CONTINUE TO FOLLOW FOR SAFE DISCHARGE.
--- NOTE | 2019-10-21 16:27 | NUR ---
PT HAD DIALYSIS THIS AM. PT REPOSITIONS SELF IN BED WELL. DENIES PAIN. PT CALLS APPROPRIATELY FOR ASSIST. PT UP TO BR WITH SB ASSIST AND WALKER. O2@2L NC. PARTICIPATES IN THERAPY.
[2019-10-21 19:30] VITALS: BP 97/62
[2019-10-22 05:27] LABS: INR 4.6
--- NOTE | 2019-10-22 06:34 | NUR ---
PT SLEPT WELL OVERNIGHT. UP WITH SBA AND WALKER TO BR TO VOID. RFA AND RAC SL IV. R CHEST TESSIO. R AND L LIMB ALERTS, BP ON RLL. PO PAIN MED GIVEN AT HS WITH GOOD RESULT. COUMADIN CONTINUES TO BE HELD, INR 4.6 THIS MORNING. PT HOPEFUL FOR TRANSFER TO REHAB SOON. ABLE TO USE CALL LITE AND MAKE NEEDS KNOWN.BED ALARM ON FOR SAFETY OVERNIGHT.
[2019-10-22 15:49] VITALS: BP 148/93
--- NOTE | 2019-10-22 18:42 | NUR ---
PT A&OX4 VSS. PT HAS DIALYSIS CATH TO R UPPER CHEST. DRESSING C/D/I. PT SCHEDULED DIALYSIS DAYS M//. PT ON 2L O2 BY NC. INR IMPROVED FROM 7.3 TO 4.6 THIS AM. COUMADIN HAS BEEN DC'D BY PHYSICIAN. PT CURRENTLY AWAITING DC TO INHOUSE REHAB UNIT. PT HAS LIMB ALERT TO BOTH ARMS. B/P CHECKED ON PT LOWER EXTRTEMITY. PT SWALLOWS PILLS W/O DOFFICULTY. PT REMAINS CONTINENT OF B/B. PT RESTS IN RECLINER WITH CALL LIGHT IN REACH. WILL CONTINUE TO MONITOR.
[2019-10-22 19:45] VITALS: BP 124/60
--- NOTE | 2019-10-23 04:11 | NUR ---
RESTED WELL THROUGHOUT HOURLY ROUNDS, DENIES PAIN OR SOA 02 @ 2L NC. PAIN MEDICATION GIVEN FOR RIGHT CATH . ICE PACK PLACED TO CHEST. SITE FREE OF REDNESS OR SWELLING. WILL CONTINUE MONITOR AND REPORT CHANGES.
[2019-10-23 04:24] LABS: INR 3.9; PROTIME 37.7 Seconds (9.20-11.50)
[2019-10-23 07:40] VITALS: BP 133/80
[2019-10-23 16:59] VITALS: BP 153/106
--- NOTE | 2019-10-23 18:23 | NUR ---
PT A&OX4 VSS. PT UP TO RECLINER. PT UP AD DEL, GAIT STEADY. PT HAS NON-PRODUCTIVE COUGH. PT ON 2L 02 [place] NC. IV TO R ARM PATENT, DRESSINGS C/D/I. PT HAS LIMB ALERT TO BUE. BP TAKEN ON LOWER LEG. DIALYSIS CATH TO R CHEST. DRESSING C/D/I. PT TO SHOWER THIS AFTERNOON. DIALYSIS CATH AND IV COVERED, DRESSINGS REMAIN C/D/I. PT CONTINENT OF B/B. PT RESTING IN ROOM WITH CALL LIGHT IN REACH. WILL CONTINUE TO MONITOR.
[2019-10-23 19:45] VITALS: BP 128/88
--- NOTE | 2019-10-24 01:58 | NUR ---
ASSUMED CARE FROM DAY SHIFT PT CHEERFUL AND BUT C/O PAIN AT DIAYLSIS SITE , SUTE FREE OF REDDNESS OR SWELLING. PO MEDICATION GIVEN. HS SNACK REQUESTED AND TOLERATED WELL. DISCUSSED PLAN OF CARE AND VERBALIZED UNDERSTANDING.
[2019-10-24 04:48] LABS: CALCIUM 8.5 mg/dL (8.5-10.1); CREATININE 6.1 mg/dL (0.6-1.3); MAGNESIUM 1.6 mg/dL (1.8-2.4); POTASSIUM 4.3 mmol/L (3.5-5.1)
[2019-10-24 04:53] LABS: PROTIME 29.7 Seconds (9.20-11.50)
[2019-10-24 08:17] VITALS: BP 120/82
--- NOTE | 2019-10-24 11:18 | NUR ---
RECIEVED VOICEMAILS FROM THE FOLLOWING REHAB FACILITIES ON 10/21/19; [facility]- WILL NOT ACCEPT PATIENT D/T MEDICAID PENDING STATUS OF 10/21/19 BUT OF THIS MORNING (10/24/19) THE PATIENT IS APPROVED. ([place]) [facility] RE[facility]- IS NOT ACCEPTING EXTERNAL REFERRALS AT THIS TIME D/T COVID-19. ([place]). IWONA STATED THAT IF THE RULE CHANGES SHE WILL KEEP US INFORMED. OF THIS MORNING (10/24/19) THE PATIENT'S INR IS WNL (3.0) SO QUESTIONING IF PATIENT CAN D/C TO REHAB NOW THAT INR IS WNL. PER JONATHAN AND [place] MACHINE OPERATOR (SATISH) THE PATIENT DOES NOT MEET IP REHAB CRITERIA D/T HER HIGH LEVEL OF FUNCTIONING ON HER OWN. PER CEDENO, THE PATIENT IS WORRIED ABOUT OUTPATIENT TREATMENT IF SHE DOESN'T HAVE HEALTH INSURANCE. CM ANISA TO UPDATE PATIENT/FAMILY ABOUT APPROVAL FOR MEDICAID. CEDENO STATES THAT PATIENT IS OKAY TO D/C ONCE MEDICALLY STABLE. CM TO CONTINUE TO FOLLOW FOR SAFE D/C PLANNING.
--- NOTE | 2019-10-24 14:09 | NUR ---
SW following through dc now planning for dc home with dtr. SW called pt room twice with no answer, pt probably still in dialysis or otherwise unable to answer the phone. RYLAND called pt dtr and explained that pt Medicaid is now active. Pt dtr preparing to be able to accept pt home tomorrow. Pt will begin dialysis at [facility] on ; SW called clinic to inform of dc plan and will send updated information/records as requested. SW to continue to follow to finalize safe dc plan.
[2019-10-24 15:45] VITALS: BP 129/81
--- NOTE | 2019-10-24 18:50 | NUR ---
PT A&Ox4. VITALS STABLE. IV PATENT. DIALYSIS TODAY, 1L OFF. UP STB. TOLERATING FOOD. CALL LIGHT WITHIN REACH. WILL CONTINUE TO MONITOR.
[2019-10-24 21:00] VITALS: BP 98/67
--- NOTE | 2019-10-25 05:55 | NUR ---
PT HAS SLEPT WELL WITHOUT COMPLAINTS. UP WITH SBA, WALKER TO BR. R CHEST TESSIO. O2 2L. RECEIVING PO PAIN MED AT HS WITH GOOD RESULT. AOX4, ABLE TO USE CALL LITE AND MAKE NEEDS KNOWN. AM LABS. HOPEFUL FOR DISCHARGE TODAY, REHAB VS HOME WITH HH SERVICES.
[2019-10-25 06:46] LABS: HEMATOCRIT 20.6 % (37.0-47.0); MCH 33.4 pg (26.0-34.0); MCHC 34.1 g/dL (28.0-37.0); MCV 97.9 fL (80.0-100.0); MPV 7.3 fl. (7.2-11.1); RBC 2.11 mil/uL (4.20-5.00); RDW-CV 15.7 % (10.5-14.5); WBC 4.6 thou/uL (4.0-11.0)
[2019-10-25 06:52] LABS: PROTIME 20.2 Seconds (9.20-11.50)
[2019-10-25 06:59] LABS: ALBUMIN 2.2 g/dL (3.4-5.0); CALCIUM 8.5 mg/dL (8.5-10.1); MAGNESIUM 1.7 mg/dL (1.8-2.4); PHOSPHORUS* 2.7 mg/dL (2.5-4.9); POTASSIUM 4.6 mmol/L (3.5-5.1)
[2019-10-25 07:00] LABS: CREATININE 3.9 mg/dL (0.6-1.3)
[2019-10-25 09:05] VITALS: BP 131/81
--- NOTE | 2019-10-25 14:54 | NUR ---
PT.TO DISCHARGE TODAY, HOME WITH DAUGHTER AND HOME HEALTH. FAXED DISCHARGE SUMMARY AND DISCHARGE ORDERS TO [facility]. WILL FAX FLOW SHEETS AND DISCHARGE SUMMARY TO [facility]. WILMAR COREAS SAID DAUGHTER TO PICK PT.UP LATER TODAY. ASKED WILMAR COREAS TO GIVE PT.DIALYSIS CONFIRMATION LETTER THAT CAME FROM [facility] TODAY.
[2019-10-25 16:00] VITALS: BP 138/102
[2019-10-25 20:00] VITALS: BP 146/92
--- NOTE | 2019-10-26 06:29 | NUR ---
PATIENT SLEPT MOST OF THE NIGHT. IV REMAINS SALINE LOCKED. PATIENT HAS BEEN NPO SINCE MIDNIGHT FOR FISTULA PLACEMENT LATER TODAY. PATIENT WAS GIVEN PAIN MEDICINE ONCE THIS SHIFT. WILL CONTINUE TO MONITOR.
[2019-10-26 08:06] VITALS: BP 144/76
--- NOTE | 2019-10-26 11:18 | NUR ---
Pt to dc to home today post fistula placement. CM faxed flowsheets and dc summary to [facility]. CM faxed HH orders to [facility].
[2019-10-26 11:19] VITALS: BP 152/71
[2019-10-26 11:31] LABS: HEMATOCRIT 24.1 % (37.0-47.0); HEMOGLOBIN 8.3 gm/dL (12.0-15.0); MCH 33.2 pg (26.0-34.0); MCHC 34.3 g/dL (28.0-37.0); MCV 96.7 fL (80.0-100.0); MPV 7.1 fl. (7.2-11.1); RBC 2.49 mil/uL (4.20-5.00); RDW-CV 15.2 % (10.5-14.5); WBC 4.8 thou/uL (4.0-11.0)
[2019-10-26 11:38] LABS: CALCIUM 8.5 mg/dL (8.5-10.1); POTASSIUM 3.4 mmol/L (3.5-5.1)
[2019-10-26 11:39] LABS: CREATININE 1.7 mg/dL (0.6-1.3)
--- NOTE | 2019-10-26 16:02 | NUR ---
PT DISCHARGED TO HOME WITH HH AT 1550 BY WHEELCHAIR WITH NURSING STAFF AND DAUGHTER. IV OUT. PT STABLE. PAPER SCRIPTS AND PERSONAL ITEMS SENT WITH PT.
== END 2019-10-26 16:14 | disposition home health service (06) | DRG 853 ==
LOC: M.ERS 23:09 → M.ICU 09-30 01:43 → M.3W 09-30 01:43 → M.ORTHSURG 09-30 01:43 → M.TBA-ER 09-30 01:43 → M.ICU 09-30 04:15 → M.ORTHSURG 10-01 12:38 → M.2W 10-08 18:15 → M.ICU 10-08 21:37 → M.2W 10-10 17:15 → M.ICU 10-16 11:38 → M.3W 10-19 15:12
PROVIDERS: Anesthesiology; Emergency Medicine; Family Medicine; Internal Medicine; Internal Medicine Cardiovascular Disease; Internal Medicine Nephrology; Nurse Practitioner; Registered Nurse; ADMIT Internal Medicine
PROC: 5A1D70Z Performance of Urinary Filtration, Intermittent, Less than 6 Hours Per Day (ICD-10-PCS; principal; 2019-10-03)
PROC: B548ZZA Ultrasonography of Superior Vena Cava, Guidance (ICD-10-PCS; principal; 2019-10-03)
PROC: 0JH63XZ Insertion of Tunneled Vascular Access Device into Chest Subcutaneous Tissue and Fascia, Percutaneous Approach (ICD-10-PCS; principal; 2019-10-03)
PROC: 02HV33Z Insertion of Infusion Device into Superior Vena Cava, Percutaneous Approach (ICD-10-PCS; principal; 2019-10-03)
PROC: 5A1D70Z Performance of Urinary Filtration, Intermittent, Less than 6 Hours Per Day (ICD-10-PCS; 2019-10-14)
PROC: 5A1D70Z Performance of Urinary Filtration, Intermittent, Less than 6 Hours Per Day (ICD-10-PCS; 2019-10-17)
PROC: 5A1D70Z Performance of Urinary Filtration, Intermittent, Less than 6 Hours Per Day (ICD-10-PCS; 2019-10-24)
PROC: 031C3ZF Bypass Left Radial Artery to Lower Arm Vein, Percutaneous Approach (ICD-10-PCS; 2019-10-26)
PROC: 03180ZD Bypass Left Brachial Artery to Upper Arm Vein, Open Approach (ICD-10-PCS; 2019-10-26)
DX: A41.9 Sepsis, unspecified organism (principal); N18.6 End stage renal disease; I50.31 Acute diastolic (congestive) heart failure; G92 Toxic encephalopathy; J96.21 Acute and chronic respiratory failure with hypoxia; J15.6 Pneumonia due to other Gram-negative bacteria; N17.9 Acute kidney failure, unspecified; N30.01 Acute cystitis with hematuria; I47.1 Supraventricular tachycardia; I16.1 Hypertensive emergency; E44.1 Mild protein-calorie malnutrition; D68.59 Other primary thrombophilia; I13.0 Hypertensive heart and chronic kidney disease with heart failure and stage 1 through stage 4 chronic kidney disease, or unspecified chronic kidney disease; I82.611 Acute embolism and thrombosis of superficial veins of right upper extremity; E87.1 Hypo-osmolality and hyponatremia; Z68.1 Body mass index [BMI] 19.9 or less, adult; J44.0 Chronic obstructive pulmonary disease with (acute) lower respiratory infection; I13.2 Hypertensive heart and chronic kidney disease with heart failure and with stage 5 chronic kidney disease, or end stage renal disease; R65.20 Severe sepsis without septic shock; D64.9 Anemia, unspecified; E88.09 Other disorders of plasma-protein metabolism, not elsewhere classified; E87.70 Fluid overload, unspecified; E83.42 Hypomagnesemia; I48.91 Unspecified atrial fibrillation; Z20.828 Contact with and (suspected) exposure to other viral communicable diseases; B95.2 Enterococcus as the cause of diseases classified elsewhere; I27.20 Pulmonary hypertension, unspecified; Z79.82 Long term (current) use of aspirin; Z79.899 Other long term (current) drug therapy; Z88.6 Allergy status to analgesic agent; Z88.0 Allergy status to penicillin; Z88.2 Allergy status to sulfonamides; Z88.8 Allergy status to other drugs, medicaments and biological substances; Z82.49 Family history of ischemic heart disease and other diseases of the circulatory system; Z87.891 Personal history of nicotine dependence

== ENCOUNTER → 2019-12-23 | Outpatient (CLI) | payer MEDICARE, MEDICAID ==
[~2019-12-23] MED LIST changes: +CALCIUM CARBON200 M1 PO; +COUMADIN 1MG TAB1 M1 PO; +HYDROCODON-ACE1 EAC7 PO; +LORCET 5-325 M1 EACH PO; +NEPHRO-VITE TA0.8 MG PO; +NORVASC 2.5 MG2.5 M1 PO; +PULMICORT0.5 MG/2 M INH; +RENVELA800 MG PO; +SENNA-TIME S T1 EACH PO
== END ==
LOC: M.LAB 11:30
PROVIDERS: ATTEND Surgery
DX: Z01.812 Encounter for preprocedural laboratory examination (principal); Z11.59 Encounter for screening for other viral diseases

== ENCOUNTER → 2019-12-28 | Day surgery (SDC) | payer MEDICARE, MEDICAID ==
[2019-12-28 07:38] LABS: HEMATOCRIT 44.2 % (37.0-47.0); HEMOGLOBIN 14.6 gm/dL (12.0-15.0); MCH 35.9 pg (26.0-34.0); MCV 108.8 fL (80.0-100.0); MPV 8.4 fl. (7.2-11.1); RBC 4.06 mil/uL (4.20-5.00); RDW-CV 18.3 % (10.5-14.5)
[2019-12-28 07:48] LABS: CREATININE 4.7 mg/dL (0.6-1.3); POTASSIUM 4.8 mmol/L (3.5-5.1)
[2019-12-28 07:50] LABS: APTT 27.4 Seconds (25.0-31.3); INR 1.2
[2019-12-28 07:53] LABS: CALCIUM 9.7 mg/dL (8.5-10.1)
--- NOTE | 2019-12-28 12:39 | OP ---
[facility] [address] [place] [address] OPERATIVE REPORT Name: BARRETT OBANDO Room: [facility]#: [id number] Admission: 12/28/19 Attend Phys: Cristian Garcia Discharge: Date of : 54 Report #: [id number] THIS REPORT FOR: //name// cc: Barbara Gutierrez Tami FNP ~ THIS REPORT FOR: //name// CC: Cristian Gutierrez DATE OF SERVICE: 12/28/2019 PREOPERATIVE DIAGNOSIS: End-stage renal disease. POSTOPERATIVE DIAGNOSIS: End-stage renal disease. OPERATION: 1. Laparoscopic placement of tunneled intraperitoneal catheter. 2. Laparoscopic omentopexy. SURGEON: Cristian Garcia MD ANESTHESIA: General. ESTIMATED BLOOD LOSS: Minimal. SPECIMEN: None. DESCRIPTION OF PROCEDURE: After informed consent was obtained, the patient was brought to the operating room and placed supine. SCDs were placed and working, preoperative antibiotics were administered, general anesthesia was induced. The abdomen was prepped and draped in the usual sterile fashion. A 5 mm incision was made in the left upper quadrant. A 5 mm trocar was placed under direct vision. Pneumoperitoneum was established. A left-sided 5 mm trocar was placed. The omentum was then grasped and brought up to the right upper quadrant. A 2-0 silk sutures were used to go through the skin and then through the omentum and then back out through the skin performing the omentopexy. This was done in 2 places in the right upper quadrant to hold the omentum away from the pelvis. An 8-mm trocar was placed in the left rectus sheath. The catheter was placed through the 8 mm trocar. The tip was then placed into the pelvis. The catheter was then pulled back, so that the internal cuff was then in the rectus sheath. Catheter was then tunneled to the left upper quadrant of the abdomen. The ports were then removed under direct vision. The catheter flushed easily with 750 mL of normal saline and then drained easily as well. A 500 mL of heparinized saline was [place] [address] OPERATIVE REPORT Name: BARRETT OBANDO Room: [facility]#: [id number] Admission: 12/28/19 Attend Phys: Cristian Garcia Discharge: Date of : 54 Report #: [id number] The skin was then closed with 4-0 Monocryl. Incisions were sealed with Steri-Strips and sterile gauze. COMPLICATIONS: None. DISPOSITION: The patient was taken to recovery in satisfactory condition. <ELECTRONICALLY SIGNED> By: Cristian Garcia MD 12/28/19 1239 1224 1235MD aisha Gibson
== END | disposition home or self-care (01) ==
LOC: M.SUR 07:14
PROVIDERS: ATTEND Surgery
DX: N18.6 End stage renal disease (principal); D64.9 Anemia, unspecified; J44.9 Chronic obstructive pulmonary disease, unspecified; Z98.890 Other specified postprocedural states; Z79.899 Other long term (current) drug therapy; Z88.0 Allergy status to penicillin; Z88.2 Allergy status to sulfonamides; Z88.8 Allergy status to other drugs, medicaments and biological substances

== ENCOUNTER 2020-08-13 12:07 | Inpatient (IN) | payer OTHER, MEDICAID ==
[2020-08-13] VITALS (10 sets, daily range): BP systolic 70–109; BP diastolic 49–88
[~2020-08-13] VITALS: Ht 160 cm; Wt 57.2 kg
--- NOTE | ~2020-08-13 | PROC ---
[address] [address] PROCEDURE REPORT Name: BARRETT OBANDO Room: [address] IN M.R.#: [id number] Admission: 08/13/20 Attend Phys: Seven Del Toro MD Discharge: 08/18/20 Date of : 54 Report #: [id number] THIS REPORT FOR: cc: Barbara Gutierrez Tami FNP ~ [facility],Medical Records Staff For GI report, please see the Provation report in Perceptive 7 content. By: [id number] Records Staff [facility] /BRAULIO
--- NOTE | ~2020-08-13 | PROC ---
[address] [address] PROCEDURE REPORT Name: BARRETT OBANDO Room: [address] IN M.R.#: [id number] Admission: 08/13/20 Attend Phys: Seven Del Toro MD Discharge: Date of : 54 Report #: [id number] THIS REPORT FOR: cc: Barbara Gutierrez Tami FNP ~ [facility],Medical Records Staff For GI report, please see the Provation report in Perceptive 7 content. By: 0650Medical Records Staff [facility] /BRAULIO
--- NOTE | ~2020-08-13 | CON ---
[address] [address] CONSULTATION Name: BARRETT OBANDO Room: [address] IN M.R.#: [id number] Admission: 08/13/20 Attend Phys: Seven Del Toro MD Discharge: Date of : 54 Report #: [id number] THIS REPORT FOR: cc: Barbara Gutierrez Tami FNP ~ Ivon Duong MD DATE OF SERVICE: 08/14/2020 CONSULTING PHYSICIAN: Seven Del Toro MD REASON FOR CONSULTATION: End-stage kidney disease. HISTORY OF PRESENT ILLNESS: A 69-year-old female with a history of end-stage kidney disease, on peritoneal dialysis, followed by me as an outpatient, who was admitted with nausea, vomiting and significant anemia. She had a hemoglobin of 8.1 and it dropped to 6.5 this morning. She tolerated peritoneal dialysis overnight, appears to be comfortable at this time, is being seen by GI with plans for endoscopy. Of note, her hemoglobin on 07/20 was 11.3. She has been having low blood pressures to the point where she has stopped taking her blood pressure medications. Denies any hematemesis. She does use some heparin with PD. She does have fibrin and this has not been any worse lately and has been well managed. She tolerated her dialysis overnight without any alarming and we held the heparin. Her CT scan showed some ascites in her abdomen in the setting of being on peritoneal dialysis and her catheter was noted to be positioned in the lower abdominal quadrant. She appears to be comfortable, has no complaints this morning. REVIEW OF SYSTEMS: Constitutional, psych, heme, eyes, ENT, respiratory, cardiac, GI, , endocrine, all negative except as documented above. PAST MEDICAL HISTORY: End-stage kidney disease, COPD and history of hypertension. FAMILY HISTORY: Not pertinent in this 69-year-old female. CURRENT MEDICATIONS: Reviewed. SOCIAL HISTORY: Former smoker. PHYSICAL EXAMINATION: VITAL SIGNS: Blood pressure is 92/53, pulse 77, respirations 16and temperature 37.1. GENERAL: No acute distress. EYES: [place] [address] CONSULTATION Name: BARRETT OBANDO Room: [address] IN [facility]#: [id number] Admission: 08/13/20 Attend Phys: Seven Del Toro MD Discharge: Date of : 54 Report #: [id number] EARS: Externally normal. NECK: Supple. CARDIOVASCULAR: Regular rate. LUNGS: No crackles. ABDOMEN: Soft and nontender. MUSCULOSKELETAL: Nontender. PSYCHIATRIC: Awake, alert and oriented. LABORATORY DATA: White cell count 9.9, hemoglobin 6.5 and now up to 8.3 and platelets 304. Sodium 136, potassium 3.6, chloride 98, bicarbonate 28, BUN 66, creatinine 8.7, glucose 98, calcium 8.4, magnesium 2.5 and albumin 3.2. ASSESSMENT: 1. End-stage kidney disease, on peritoneal dialysis, followed by Dr. Duong. She normally does PD 7 days a week with an estimated dry weight of 50.5. She often uses 2.5 dextrose bags, has a fill volume of 1950 with a dwell time of 1 hour and 30 minutes and does 5 exchanges. 2. Underlying history of hypertension. 3. Secondary hyperparathyroidism, on sevelamer. 4. Chronic obstructive pulmonary disease. 5. Chronic anticoagulation, on Coumadin as an outpatient. 6. Severe anemia with hemoglobin of 6.5 on 08/14/2020 and on 07/20 outpatient hemoglobin was 11.3. She was transfused 1 unit of packed red blood cells on 08/14/2020. PLAN: 1. Continue peritoneal dialysis. It is all 1.5% dextrose bags, she had about 400 mL of ultrafiltration overnight. 2. For her hypotension, she is off blood pressure medications and is on midodrine. 3. GI is consulted and endoscopy is planned upper and lower. We will administer prophylactic antibiotics to protect against peritoneal dialysis related peritonitis. 4. Defer monitoring of hemoglobin and transfusion need to primary service. 5. Check labs again in the a.m. We will follow for PD needs. Thank you for requesting my opinion in the care and management of this patient. By: 1248 1927Abimarco antonio Duong MD /alvarado
[2020-08-13] MEDS ORDERED: VITAMIN D3125 MC1 PO (12:25)
[2020-08-13] MEDS ORDERED: [UNRECOGNIZED DRUG - REMARK] (12:25)
[2020-08-13 12:48] LABS: ABSOLUTE BASOPHILS 0.1 thou/uL (0.0-0.2); ABSOLUTE EOSINOPHILS 0.1 thou/uL (0.0-0.7); ABSOLUTE LYMPHOCYTES 1.6 thou/uL (0.8-5.3); ABSOLUTE MONOCYTES 0.6 thou/uL (0.0-1.2); ABSOLUTE NEUTROPHILS 8.9 thou/uL (1.6-8.1); BASOPHILS 0.8 %; EOSINOPHILS 1.3 %; HEMATOCRIT 23.7 % (37.0-47.0); HEMOGLOBIN 8.1 gm/dL (12.0-15.0); LYMPHOCYTES 13.8 %; MCHC 34.2 g/dL (28.0-37.0); MCV 99.5 fL (80.0-100.0); MONOCYTES 5.3 %; MPV 7.4 fl. (7.2-11.1); NUCLEATED RBCS 0 /100WBC; PLATELET COUNT* 368 thou/uL (150-400); POLYS 78.8 %; RBC 2.38 mil/uL (4.20-5.00); RDW-CV 15.3 % (10.5-14.5); WBC 11.3 thou/uL (4.0-11.0)
[2020-08-13 12:57] LABS: CALCIUM 9.4 mg/dL (8.5-10.1); CREATININE 9.6 mg/dL (0.6-1.3); POTASSIUM 3.3 mmol/L (3.5-5.1)
[2020-08-13 13:00] LABS: APTT 33.1 Seconds (25.0-31.3); INR 2.8; PROTIME 27.9 Seconds (9.20-11.50)
[2020-08-13 13:01] LABS: ALBUMIN 3.2 g/dL (3.4-5.0); TOTAL BILIRUBIN 0.3 mg/dL (<0.1-1.0); TOTAL PROTEIN 7.1 g/dL (6.4-8.2)
--- NOTE | 2020-08-13 14:29 | EKG ---
[place] [address] ELECTROCARDIOGRAM REPORT Name: BARRETT OBANDO Room: [facility]#: [id number] Admission: 08/13/20 Attend Phys: Discharge: Date of : 54 Date of Service: 08/13/20 1254 Report #: [id number] THIS REPORT FOR: //name// [facility] ED Test Date: 2020-08-13 Test Time: 12:54:25 Pat Name: BARRETT OBANDO Department: Room: Gender: F Credit Professional: [facility] [place] : 1950 Requested By: Sarah Ram Order Number: [id number] MD: Harlan Strong Measurements Intervals [place] Rate: 86 P: 80 SC: 154 QRS: 57 QRSD: 102 T: 215 QT: 404 QTc: 484 Interpretive Statements Sinus rhythm Borderline repolarization abnormality Compared to ECG 10/17/2019 13:27:52 Junctional rhythm no longer present and the heart rate has increased QT interval has shortened Electronically Signed On 08-13-2020 14:29:22 PARTNERSHIP DEVELOPMENT MANAGER by Harlan Strong [email or web address] <ELECTRONICALLY SIGNED> By: Harlan Strong MD, [facility] 08/13/20 1429 1254 1254 Harlan Strong MD, [facility] /EPI
[2020-08-13] MEDS ORDERED: CALCITRIOL PO (17:42)
[2020-08-14] VITALS (31 sets, daily range): BP systolic 72–112; BP diastolic 44–74
[2020-08-14 04:34] LABS: ABSOLUTE BASOPHILS 0.1 thou/uL (0.0-0.2); ABSOLUTE EOSINOPHILS 0.4 thou/uL (0.0-0.7); ABSOLUTE LYMPHOCYTES 2.7 thou/uL (0.8-5.3); ABSOLUTE MONOCYTES 0.8 thou/uL (0.0-1.2); ABSOLUTE NEUTROPHILS 5.9 thou/uL (1.6-8.1); BASOPHILS 1.2 %; EOSINOPHILS 3.7 %; LYMPHOCYTES 27.4 %; MCH 34.4 pg (26.0-34.0); MCHC 34.1 g/dL (28.0-37.0); MCV 100.8 fL (80.0-100.0); MONOCYTES 7.9 %; MPV 7.1 fl. (7.2-11.1); NUCLEATED RBCS 0 /100WBC; PLATELET COUNT* 304 thou/uL (150-400); POLYS 59.8 %; RDW-CV 15.7 % (10.5-14.5); WBC 9.9 thou/uL (4.0-11.0)
[2020-08-14 04:47] LABS: HEMATOCRIT 19.2 % (37.0-47.0); HEMOGLOBIN 6.5 gm/dL (12.0-15.0)
[2020-08-14 04:58] LABS: CALCIUM 8.4 mg/dL (8.5-10.1); CREATININE 8.7 mg/dL (0.6-1.3); MAGNESIUM 2.5 mg/dL (1.8-2.4); POTASSIUM 3.6 mmol/L (3.5-5.1)
[2020-08-14 12:10] LABS: HEMATOCRIT 24.4 % (37.0-47.0); HEMOGLOBIN 8.3 gm/dL (12.0-15.0)
--- NOTE | 2020-08-14 13:58 | 2DMMODE ---
[place] [address] 2 D/M-MODE ECHOCARDIOGRAM Name: BARRETT OBANDO Shania Room: [address] ADM IN .R.#: [id number] Admission: 08/13/20 Attend Phys: Seven Del Toro, Discharge: Date of : 54 Date of Service: 08/14/20 1358 Report #: [id number] THIS REPORT FOR: cc: Barbara Gutierrez Tami FNP Liston, Michael J. MD [facility] ~ APPROVED REPORT Study performed: 08/14/2020 09:16:31 EXAM: Comprehensive 2D, Doppler, and color-flow Echocardiogram Patient Location: In-Patient Room #: 004 Status: routine BSA: 1.50 HR: 75 bpm BP: 92/53 mmHg Rhythm: NSR Other Information Study Quality: Good Indications Hypotension 2D Dimensions IVSd: 10.40 (7-11mm) LVOT Diam: 19.29 (18-24mm) LVDd: 34.53 mm PWd: 9.99 (7-11mm) Ascending Ao: 30.31 (22-36mm) LVDs: 18.90 (25-40mm) Aortic Root: 26.17 mm Volumes Left Atrial Volume (Systole) LA ESV Index: 37.40 mL/m2 Aortic Valve AoV Peak Hao.: 2.29 m/s AO Peak Gr.: 21.01 mmHg LVOT Max P.75 mmHg AO Mean Gr.: 9.07 mmHg LVOT Mean P.07 mmHg LVOT Max V: 1.56 m/s AO V2 VTI: 39.00 cm LVOT Mean V: 0.91 m/s SILVIO (VTI): 2.31 cm2 LVOT V1 VTI: 30.76 cm AI [place]: 3.89 m/s2 [place] [address] 2 D/M-MODE ECHOCARDIOGRAM Name: BARRETT OBANDO Room: [address] ADM IN M.R.#: [id number] Admission: 08/13/20 Attend Phys: Seven Del Toro, Discharge: Date of : 54 Date of Service: 08/14/20 1358 Report #: [id number] PHT: 295.05 ms Mitral Valve MV Mean Gr.: 3.58 mmHg E/A Ratio: 0.73 MV Decel. Time: 366.06 ms MV E Max Hao.: 0.95 m/s MV PHT: 106.16 ms MVA (PHT): 2.07 cm2 TDI E/Lateral E': 11.88 E/Medial E': 11.88 Medial E' Hao.: 0.08 m/s Lateral E' Hao.: 0.08 m/s Pulmonary Valve PV Peak Hao.: 1.50 m/s PV Peak Gr.: 9.04 mmHg Tricuspid Valve RAP Estimate: 5.00 mmHg TR Peak Gr.: 45.41 mmHg RVSP: 50.00 mmHg PA Pressure: 50.00 mmHg Left Ventricle The left ventricle is normal size. There is normal LV segmental wall motion. There is normal left ventricular wall thickness. Left ventricular systolic function is normal. LVEF is 65-70%. Grade I - abnormal relaxation pattern. Right Ventricle The right ventricle is normal size. The right ventricular systolic function is normal. Atria Left atrium is mildly dilated. The right atrium size is normal. Aortic Valve The aortic valve is normal in structure. Moderate to severe aortic regurgitation There is no aortic valvular stenosis. Mitral Valve There is mitral annular calcification. There is no mitral valve regurgitation noted. No evidence of mitral valve stenosis. Tricuspid Valve The tricuspid valve is normal in [place] [address] 2 D/M-MODE ECHOCARDIOGRAM Name: BARRETT OBANDO Room: [address] IN .R.#: [id number] Admission: 08/13/20 Attend Phys: Seven Del Toro, Discharge: Date of : 54 Date of Service: 08/14/20 1358 Report #: [id number] regurgitation. Moderate pulmonary hypertension. The RVSP is 50-55 mmHg. Pulmonic Valve The pulmonary valve is normal in structure. Trace pulmonic regurgitation. Great Vessels The aortic root is normal in size. IVC is normal in size and collapses >50% with inspiration. Pericardium There is no pericardial effusion. <Conclusion> The left ventricle is normal size. There is normal left ventricular wall thickness. Left ventricular systolic function is normal. LVEF is 65-70%. Grade I - abnormal relaxation pattern. Left atrium is mildly dilated. Moderate to severe aortic regurgitation Mild tricuspid regurgitation. Moderate pulmonary hypertension. The RVSP is 50-55 mmHg. IVC is normal in size and collapses >50% with inspiration. <ELECTRONICALLY SIGNED> By: Flavio Rowley MD, FACC 08/14/20 1358 1358 1358 Flavio Rowley MD, FACC /INF
[2020-08-15 02:19] VITALS: BP 83/48
[2020-08-15 03:00] VITALS: BP 91/57
[2020-08-15 04:00] VITALS: BP 98/67
[2020-08-15 05:00] VITALS: BP 98/63
[2020-08-15 05:09] LABS: ABSOLUTE BASOPHILS 0.1 thou/uL (0.0-0.2); ABSOLUTE EOSINOPHILS 0.4 thou/uL (0.0-0.7); ABSOLUTE LYMPHOCYTES 2.1 thou/uL (0.8-5.3); ABSOLUTE MONOCYTES 0.7 thou/uL (0.0-1.2); ABSOLUTE NEUTROPHILS 5.9 thou/uL (1.6-8.1); BASOPHILS 0.8 %; EOSINOPHILS 4.7 %; HEMATOCRIT 22.7 % (37.0-47.0); HEMOGLOBIN 7.8 gm/dL (12.0-15.0); LYMPHOCYTES 22.5 %; MCH 31.9 pg (26.0-34.0); MCHC 34.5 g/dL (28.0-37.0); MONOCYTES 7.2 %; MPV 7.5 fl. (7.2-11.1); NUCLEATED RBCS 0 /100WBC; PLATELET COUNT* 300 thou/uL (150-400); POLYS 64.8 %; RBC 2.46 mil/uL (4.20-5.00); RDW-CV 22.4 % (10.5-14.5); WBC 9.1 thou/uL (4.0-11.0)
[2020-08-15 05:10] LABS: MCV 92.3 fL (80.0-100.0)
[2020-08-15 05:20] LABS: PROTIME 20.2 Seconds (9.20-11.50)
[2020-08-15 05:32] LABS: ALBUMIN 2.5 g/dL (3.4-5.0); CALCIUM 9.2 mg/dL (8.5-10.1); CREATININE 8.1 mg/dL (0.6-1.3); MAGNESIUM 2.2 mg/dL (1.8-2.4); PHOSPHORUS* 5.2 mg/dL (2.5-4.9); POTASSIUM 3.3 mmol/L (3.5-5.1); TOTAL BILIRUBIN 0.3 mg/dL (<0.1-1.0); TOTAL PROTEIN 5.6 g/dL (6.4-8.2)
[2020-08-15 06:24] LABS: ANISOCYTOSIS 1+; PLATELET ESTIMATE ADEQUATE
[2020-08-15 08:24] VITALS: BP 100/65
[2020-08-15 16:00] VITALS: BP 99/60
[2020-08-15 16:37] LABS: URINE BILIRUBIN NEGATIVE (Negative); URINE BLOOD TRACE (Negative); URINE CLARITY CLEAR; URINE COLOR YELLOW; URINE GLUCOSE-RANDOM NEGATIVE (Negative); URINE KETONES NEGATIVE (Negative); URINE LEUKOCYTES-REFLEX NEGATIVE (Negative); URINE NITRITE-REFLEX NEGATIVE (Negative); URINE PROTEIN 2+ (Negative); URINE SPECIFIC GRAVITY 1.015 (1.005-1.030); URINE UROBILINOGEN 0.2 E.U./dl (0.2-1.0)
[2020-08-15 16:50] LABS: SQUAMOUS >10 Many /LPF (0-3)
[2020-08-15 16:51] LABS: BACTERIA-REFLEX 1-9 Few /HPF (None Seen); CASTS None Seen /LPF (None Seen); CRYSTALS None Seen /LPF (None Seen); MUCUS None Seen strn/LPF (None Seen); URINE RBC 0-2 Rare /HPF (0-2); URINE WBC-REFLEX 0-5 Rare /HPF (0-5)
[2020-08-16] VITALS: BP 90/55
[2020-08-16 04:00] VITALS: BP 73/52
[2020-08-16 04:36] LABS: ABSOLUTE BASOPHILS 0.1 thou/uL (0.0-0.2); ABSOLUTE EOSINOPHILS 0.4 thou/uL (0.0-0.7); ABSOLUTE LYMPHOCYTES 1.6 thou/uL (0.8-5.3); ABSOLUTE MONOCYTES 0.8 thou/uL (0.0-1.2); ABSOLUTE NEUTROPHILS 5.5 thou/uL (1.6-8.1); BASOPHILS 0.7 %; EOSINOPHILS 5.4 %; HEMATOCRIT 23.6 % (37.0-47.0); LYMPHOCYTES 19.2 %; MCH 31.6 pg (26.0-34.0); MCHC 33.7 g/dL (28.0-37.0); MCV 93.8 fL (80.0-100.0); MONOCYTES 9.5 %; MPV 7.5 fl. (7.2-11.1); NUCLEATED RBCS 0 /100WBC; PLATELET COUNT* 294 thou/uL (150-400); POLYS 65.2 %; RBC 2.52 mil/uL (4.20-5.00); RDW-CV 22.6 % (10.5-14.5); WBC 8.4 thou/uL (4.0-11.0)
[2020-08-16 04:46] LABS: ALBUMIN 2.5 g/dL (3.4-5.0); CALCIUM 8.3 mg/dL (8.5-10.1); CREATININE 7.5 mg/dL (0.6-1.3); POTASSIUM 3.4 mmol/L (3.5-5.1); TOTAL BILIRUBIN 0.3 mg/dL (<0.1-1.0); TOTAL PROTEIN 5.6 g/dL (6.4-8.2)
[2020-08-16 05:51] LABS: PLATELET ESTIMATE ADEQUATE
[2020-08-16 05:52] LABS: HYPOCHROMASIA 1+; POLYCHROMASIA 1+
[2020-08-16 05:53] LABS: ANISOCYTOSIS 1+; POIKILOCYTOSIS 1+
[2020-08-16 11:44] VITALS: BP 92/58
[2020-08-16 16:31] VITALS: BP 85/64
[2020-08-16 20:00] VITALS: BP 107/60
[2020-08-16 23:47] VITALS: BP 98/62
[2020-08-17 02:06] LABS: HEPATITIS B SURFACE AG Negative (Negative)
[2020-08-17 04:04] VITALS: BP 93/60
[2020-08-17 04:11] LABS: ABSOLUTE BASOPHILS 0.1 thou/uL (0.0-0.2); ABSOLUTE EOSINOPHILS 0.4 thou/uL (0.0-0.7); ABSOLUTE LYMPHOCYTES 1.7 thou/uL (0.8-5.3); ABSOLUTE MONOCYTES 0.8 thou/uL (0.0-1.2); ABSOLUTE NEUTROPHILS 4.2 thou/uL (1.6-8.1); BASOPHILS 1.2 %; EOSINOPHILS 5.6 %; HEMOGLOBIN 7.4 gm/dL (12.0-15.0); LYMPHOCYTES 23.9 %; MCHC 33.5 g/dL (28.0-37.0); MCV 95.5 fL (80.0-100.0); MONOCYTES 11.6 %; MPV 7.3 fl. (7.2-11.1); NUCLEATED RBCS 0 /100WBC; PLATELET COUNT* 275 thou/uL (150-400); POLYS 57.7 %; RDW-CV 22.4 % (10.5-14.5); WBC 7.3 thou/uL (4.0-11.0)
[2020-08-17 04:22] LABS: INR 1.3; PROTIME 13.7 Seconds (9.20-11.50)
[2020-08-17 04:33] LABS: ALBUMIN 2.4 g/dL (3.4-5.0); CALCIUM 9.2 mg/dL (8.5-10.1); CREATININE 7.7 mg/dL (0.6-1.3); TOTAL BILIRUBIN 0.3 mg/dL (<0.1-1.0); TOTAL PROTEIN 5.4 g/dL (6.4-8.2)
[2020-08-17 05:02] LABS: POTASSIUM 4.5 mmol/L (3.5-5.1)
[2020-08-17 07:07] LABS: ANISOCYTOSIS 2+; HYPOCHROMASIA 1+
[2020-08-17 07:08] LABS: MICROCYTES 1+
[2020-08-17 07:09] LABS: BURR CELLS Occasional; PLATELET ESTIMATE ADEQUATE
[2020-08-17 07:55] VITALS: BP 87/53
[2020-08-17 16:16] VITALS: BP 112/62
[2020-08-17 20:00] VITALS: BP 103/67
[2020-08-18] VITALS: BP 88/54
[2020-08-18 04:00] VITALS: BP 88/51
[2020-08-18 08:00] VITALS: BP 88/38
[2020-08-18] MEDS ORDERED: MIDODRINE HCL 55 M1 PO (08:54)
[2020-08-18 10:03] LABS: ABSOLUTE BASOPHILS 0.1 thou/uL (0.0-0.2); ABSOLUTE EOSINOPHILS 0.3 thou/uL (0.0-0.7); ABSOLUTE LYMPHOCYTES 1.8 thou/uL (0.8-5.3); ABSOLUTE MONOCYTES 0.7 thou/uL (0.0-1.2); ABSOLUTE NEUTROPHILS 3.9 thou/uL (1.6-8.1); BASOPHILS 0.9 %; HEMOGLOBIN 7.7 gm/dL (12.0-15.0); LYMPHOCYTES 26.1 %; MCH 32.4 pg (26.0-34.0); MCHC 33.4 g/dL (28.0-37.0); MCV 97.1 fL (80.0-100.0); MONOCYTES 10.7 %; MPV 7.8 fl. (7.2-11.1); NUCLEATED RBCS 0 /100WBC; PLATELET COUNT* 270 thou/uL (150-400); POLYS 57.3 %; RBC 2.37 mil/uL (4.20-5.00); RDW-CV 22.3 % (10.5-14.5); WBC 6.7 thou/uL (4.0-11.0)
[2020-08-18 13:14] VITALS: BP 88/38
== END 2020-08-18 13:54 | disposition home or self-care (01) | DRG 683 ==
LOC: M.ERS 12:07 → M.TBA-ER 15:14 → M.ICU 15:14 → M.2W 08-15 08:14
PROVIDERS: Internal Medicine Gastroenterology; Internal Medicine Nephrology; Nurse Practitioner Family; ADMIT Internal Medicine; ATTEND Internal Medicine
PROC: 3E1M39Z Irrigation of Peritoneal Cavity using Dialysate, Percutaneous Approach (ICD-10-PCS; principal; 2020-08-13)
PROC: 3E1M39Z Irrigation of Peritoneal Cavity using Dialysate, Percutaneous Approach (ICD-10-PCS; 2020-08-14)
PROC: 30233N1 Transfusion of Nonautologous Red Blood Cells into Peripheral Vein, Percutaneous Approach (ICD-10-PCS; 2020-08-14)
PROC: 0DJ08ZZ Inspection of Upper Intestinal Tract, Via Natural or Artificial Opening Endoscopic (ICD-10-PCS; 2020-08-15)
PROC: 3E1M39Z Irrigation of Peritoneal Cavity using Dialysate, Percutaneous Approach (ICD-10-PCS; 2020-08-15)
PROC: 5A0935A Assistance with Respiratory Ventilation, Less than 24 Consecutive Hours, High Flow/Velocity Cannula (ICD-10-PCS; 2020-08-16)
PROC: 3E1M39Z Irrigation of Peritoneal Cavity using Dialysate, Percutaneous Approach (ICD-10-PCS; 2020-08-16)
PROC: 3E1M39Z Irrigation of Peritoneal Cavity using Dialysate, Percutaneous Approach (ICD-10-PCS; 2020-08-17)
PROC: 0DBN8ZZ Excision of Sigmoid Colon, Via Natural or Artificial Opening Endoscopic (ICD-10-PCS; 2020-08-18)
DX: N17.9 Acute kidney failure, unspecified (principal); E87.2 Acidosis; I12.0 Hypertensive chronic kidney disease with stage 5 chronic kidney disease or end stage renal disease; E44.1 Mild protein-calorie malnutrition; N18.6 End stage renal disease; J44.9 Chronic obstructive pulmonary disease, unspecified; I95.9 Hypotension, unspecified; N25.81 Secondary hyperparathyroidism of renal origin; D64.9 Anemia, unspecified; I27.20 Pulmonary hypertension, unspecified; K44.9 Diaphragmatic hernia without obstruction or gangrene; G90.9 Disorder of the autonomic nervous system, unspecified; K57.30 Diverticulosis of large intestine without perforation or abscess without bleeding; K64.9 Unspecified hemorrhoids; Z20.822 Contact with and (suspected) exposure to COVID-19; Z88.6 Allergy status to analgesic agent; Z88.0 Allergy status to penicillin; Z88.2 Allergy status to sulfonamides; Z88.8 Allergy status to other drugs, medicaments and biological substances; Z87.891 Personal history of nicotine dependence; Z79.01 Long term (current) use of anticoagulants; Z68.22 Body mass index [BMI] 22.0-22.9, adult

== ENCOUNTER 2021-04-10 20:21 | Inpatient (IN) | payer OTHER, MEDICAID ==
[~2021-04-10] VITALS: Ht 160 cm; Wt 56.5 kg
[~2021-04-10 20:21] MED LIST changes: +CALCITRIOL PO; +MIDODRINE HCL 55 M1 PO; +VITAMIN D3125 MC1 PO; +[UNRECOGNIZED DRUG - REMARK]
[2021-04-10 20:35] VITALS: BP 98/69
[2021-04-10 20:44] LABS: ABSOLUTE BASOPHILS 0.1 thou/uL (0.0-0.2); ABSOLUTE EOSINOPHILS 0.3 thou/uL (0.0-0.7); ABSOLUTE LYMPHOCYTES 1.5 thou/uL (0.8-5.3); ABSOLUTE MONOCYTES 1.2 thou/uL (0.0-1.2); ABSOLUTE NEUTROPHILS 11.2 thou/uL (1.6-8.1); BASOPHILS 0.8 %; HEMOGLOBIN 10.5 gm/dL (12.0-15.0); LYMPHOCYTES 10.4 %; MCH 34.3 pg (26.0-34.0); MCHC 33.8 g/dL (28.0-37.0); MCV 101.6 fL (80.0-100.0); MONOCYTES 8.2 %; MPV 7.8 fl. (7.2-11.1); NUCLEATED RBCS 0 /100WBC; PLATELET COUNT* 284 thou/uL (150-400); POLYS 78.6 %; RBC 3.05 mil/uL (4.20-5.00); RDW-CV 13.9 % (10.5-14.5); WBC 14.2 thou/uL (4.0-11.0)
[2021-04-10 20:55] LABS: POTASSIUM 3.7 mmol/L (3.5-5.1)
[2021-04-11 00:52] LABS: URINE BILIRUBIN NEGATIVE (Negative); URINE BLOOD TRACE (Negative); URINE CLARITY CLEAR; URINE COLOR YELLOW; URINE GLUCOSE-RANDOM NEGATIVE (Negative); URINE KETONES NEGATIVE (Negative); URINE LEUKOCYTES-REFLEX NEGATIVE (Negative); URINE NITRITE-REFLEX NEGATIVE (Negative); URINE PROTEIN 3+ (Negative); URINE SPECIFIC GRAVITY 1.015 (1.005-1.030); URINE UROBILINOGEN 0.2 E.U./dl (0.2-1.0)
[2021-04-11 01:41] LABS: BACTERIA-REFLEX 1-9 Few /HPF (None Seen); CASTS None Seen /LPF (None Seen); MUCUS 0-3 Light strn/LPF (None Seen); SQUAMOUS 4-10 Moderate /LPF (0-3); TRANSITIONAL EPITHEL CELL 0-3 Few /LPF (None Seen); URINE RBC 0-2 Rare /HPF (0-2); URINE WBC-REFLEX 0-5 Rare /HPF (0-5)
[2021-04-11 01:42] LABS: CRYSTALS None Seen /LPF (None Seen)
[2021-04-11 04:28] VITALS: BP 79/45
[2021-04-11 08:30] VITALS: BP 74/46
[2021-04-11 12:25] VITALS: BP 76/44
[2021-04-11 16:46] VITALS: BP 66/45
[2021-04-11 20:00] VITALS: BP 89/62
[2021-04-12] VITALS (7 sets, daily range): BP systolic 83–111; BP diastolic 50–76
[2021-04-13 04:00] VITALS: BP 120/77
[2021-04-13 08:47] VITALS: BP 91/58
[2021-04-13] MEDS ORDERED: PREDNISONE 10 M10 MG PO (11:25)
[2021-04-13] MEDS ORDERED: DOXYCYCLINE 10100 MG PO (11:25)
[2021-04-13 12:04] VITALS: BP 91/58
== END 2021-04-13 12:50 | disposition home or self-care (01) | DRG 189 ==
LOC: M.ERS 20:21 → M.TBA-ER 04-11 00:01 → M.ORTHSURG 04-11 14:53 → M.TBA-ER 04-11 14:53 → M.ORTHSURG 04-11 16:55
PROVIDERS: Emergency Medicine; ADMIT Internal Medicine; ATTEND Internal Medicine
DX: J96.01 Acute respiratory failure with hypoxia (principal); N18.6 End stage renal disease; R65.11 Systemic inflammatory response syndrome (SIRS) of non-infectious origin with acute organ dysfunction; N39.0 Urinary tract infection, site not specified; J44.1 Chronic obstructive pulmonary disease with (acute) exacerbation; I12.0 Hypertensive chronic kidney disease with stage 5 chronic kidney disease or end stage renal disease; Z20.822 Contact with and (suspected) exposure to COVID-19; I73.9 Peripheral vascular disease, unspecified; I95.89 Other hypotension; D63.1 Anemia in chronic kidney disease; Z88.6 Allergy status to analgesic agent; Z88.0 Allergy status to penicillin; Z88.2 Allergy status to sulfonamides; Z88.8 Allergy status to other drugs, medicaments and biological substances

== ENCOUNTER 2021-07-05 13:51 | Inpatient (IN) | payer OTHER, MEDICAID ==
[~2021-07-05] VITALS: Ht 160 cm; Wt 59.2 kg
[~2021-07-05 13:51] MED LIST changes: +DOXYCYCLINE 10100 MG PO; +PREDNISONE 10 M10 MG PO
[2021-07-05 14:07] VITALS: BP 60/40
[2021-07-05 14:37] LABS: ABSOLUTE BASOPHILS 0.1 thou/uL (0.0-0.2); ABSOLUTE EOSINOPHILS 0.2 thou/uL (0.0-0.7); ABSOLUTE LYMPHOCYTES 1.4 thou/uL (0.8-5.3); ABSOLUTE MONOCYTES 0.8 thou/uL (0.0-1.2); ABSOLUTE NEUTROPHILS 6.8 thou/uL (1.6-8.1); BASOPHILS 0.8 %; EOSINOPHILS 2.2 %; HEMATOCRIT 29.2 % (37.0-47.0); HEMOGLOBIN 9.9 gm/dL (12.0-15.0); LYMPHOCYTES 15.3 %; MCV 100.2 fL (80.0-100.0); MONOCYTES 8.3 %; NUCLEATED RBCS 0 /100WBC; PLATELET COUNT* 179 thou/uL (150-400); POLYS 73.4 %; RBC 2.92 mil/uL (4.20-5.00); RDW-CV 14.9 % (10.5-14.5); WBC 9.2 thou/uL (4.0-11.0)
[2021-07-05 14:55] LABS: CALCIUM 8.3 mg/dL (8.5-10.1); CREATININE 9.6 mg/dL (0.6-1.3); POTASSIUM 5.9 mmol/L (3.5-5.1)
[2021-07-05 15:00] LABS: ALBUMIN 2.7 g/dL (3.4-5.0); TOTAL BILIRUBIN 1.3 mg/dL (<0.1-1.0); TOTAL PROTEIN 7.3 g/dL (6.4-8.2)
[2021-07-05 22:15] VITALS: BP 105/63
[2021-07-06 01:45] VITALS: BP 105/63
[2021-07-06 02:35] LABS: ABSOLUTE EOSINOPHILS 0.1 thou/uL (0.0-0.7); ABSOLUTE LYMPHOCYTES 1.1 thou/uL (0.8-5.3); ABSOLUTE MONOCYTES 0.6 thou/uL (0.0-1.2); ABSOLUTE NEUTROPHILS 3.8 thou/uL (1.6-8.1); BASOPHILS 0.4 %; EOSINOPHILS 1.6 %; HEMATOCRIT 24.7 % (37.0-47.0); HEMOGLOBIN 8.2 gm/dL (12.0-15.0); LYMPHOCYTES 19.9 %; MCH 33.9 pg (26.0-34.0); MCHC 33.1 g/dL (28.0-37.0); MCV 102.5 fL (80.0-100.0); MONOCYTES 10.4 %; NUCLEATED RBCS 0 /100WBC; PLATELET COUNT* 196 thou/uL (150-400); POLYS 67.7 %; RBC 2.41 mil/uL (4.20-5.00); RDW-CV 14.5 % (10.5-14.5); WBC 5.6 thou/uL (4.0-11.0)
[2021-07-06 02:56] LABS: CALCIUM 7.3 mg/dL (8.5-10.1); MAGNESIUM 2.2 mg/dL (1.8-2.4)
[2021-07-06 04:00] VITALS: BP 94/56
[2021-07-06 08:51] VITALS: BP 60/40
[2021-07-06 12:40] VITALS: BP 90/40
[2021-07-06 17:12] VITALS: BP 86/42
[2021-07-06 20:00] VITALS: BP 126/59
[2021-07-07 00:05] VITALS: BP 112/47
[2021-07-07 04:00] VITALS: BP 91/39
[2021-07-07 05:08] LABS: HEMATOCRIT 25.1 % (37.0-47.0); HEMOGLOBIN 8.4 gm/dL (12.0-15.0); MCH 33.9 pg (26.0-34.0); MCHC 33.2 g/dL (28.0-37.0); MPV 8.2 fl. (7.2-11.1); NUCLEATED RBCS 0 /100WBC; PLATELET COUNT* 250 thou/uL (150-400); RBC 2.46 mil/uL (4.20-5.00); RDW-CV 14.5 % (10.5-14.5); WBC 6.4 thou/uL (4.0-11.0)
[2021-07-07 05:24] LABS: CALCIUM 7.9 mg/dL (8.5-10.1); CREATININE 9.8 mg/dL (0.6-1.3); POTASSIUM 4.4 mmol/L (3.5-5.1)
[2021-07-07 07:00] VITALS: BP 136/55
[2021-07-07 07:54] LABS: ABSOLUTE BASOPHILS 0.1 thou/uL (0.0-0.2); ABSOLUTE LYMPHOCYTES 1.2 thou/uL (0.8-5.3); ABSOLUTE MONOCYTES 0.5 thou/uL (0.0-1.2); ABSOLUTE NEUTROPHILS 4.5 thou/uL (1.6-8.1)
[2021-07-07 07:55] LABS: PLATELET ESTIMATE ADEQUATE
[2021-07-07 08:06] VITALS: BP 13/55; BP 136/55
[2021-07-07 12:00] VITALS: BP 141/61
--- NOTE | 2021-07-07 13:11 | EKG ---
[place] [address] ELECTROCARDIOGRAM REPORT Name: GISELLA,BARRETT R Room: [address] ADM IN M.R.#: [id number] Admission: 07/05/21 Attend Phys: Seven Del Toro, Discharge: Date of : 54 Date of Service: 07/05/21 1431 Report #: [id number] THIS REPORT FOR: //name// [facility] ED Test Date: 2021-07-05 Test Time: 14:31:26 Pat Name: BARRETT OBANDO Department: Room: [facility] Gender: F Extension Educator: : 1950 Requested By: Narda Kang Order Number: [id number] MD: Flavio Rowley Measurements Intervals [place] Rate: 83 P: 69 NH: 152 QRS: 52 QRSD: 108 T: 72 QT: 424 QTc: 499 Interpretive Statements Sinus rhythm Diffuse artifact Compared to ECG 08/13/2020 12:54:25 No significant changes noted Electronically Signed On 07-07-2021 13:11:19 SENIOR ECONOMIST by Flavio Rowley [email or web address] <ELECTRONICALLY SIGNED> By: Flavio Rowley MD, FACC 07/07/21 1311 1431 1431 Flavio Rowley MD, [facility] /EPI
[2021-07-07 19:59] VITALS: BP 152/47
[2021-07-08] VITALS: BP 148/51
[2021-07-08 04:00] VITALS: BP 160/49
[2021-07-08 08:00] VITALS: BP 138/53
[2021-07-08 14:06] VITALS: BP 168/62
[2021-07-08 18:50] VITALS: BP 125/59
[2021-07-08 20:15] VITALS: BP 184/69
[2021-07-09] VITALS: BP 128/65
[2021-07-09 04:00] VITALS: BP 159/56
[2021-07-09 07:34] VITALS: BP 140/58
[2021-07-09 11:34] VITALS: BP 171/69
[2021-07-09 15:41] VITALS: BP 208/69
[2021-07-09 20:16] VITALS: BP 154/65
[2021-07-10] VITALS (7 sets, daily range): BP systolic 116–198; BP diastolic 54–80
[2021-07-10 05:24] LABS: CALCIUM 7.6 mg/dL (8.5-10.1); CREATININE 8.5 mg/dL (0.6-1.3); MAGNESIUM 1.6 mg/dL (1.8-2.4); PHOSPHORUS* 6.5 mg/dL (2.5-4.9); POTASSIUM 5.6 mmol/L (3.5-5.1)
[2021-07-10 21:17] LABS: URINE BILIRUBIN NEGATIVE (Negative); URINE BLOOD TRACE (Negative); URINE CLARITY CLEAR; URINE COLOR YELLOW; URINE GLUCOSE-RANDOM TRACE (Negative); URINE KETONES NEGATIVE (Negative); URINE LEUKOCYTES-REFLEX NEGATIVE (Negative); URINE NITRITE-REFLEX NEGATIVE (Negative); URINE PROTEIN TRACE (Negative); URINE SPECIFIC GRAVITY <= 1.005 (1.005-1.030); URINE UROBILINOGEN 0.2 E.U./dl (0.2-1.0)
[2021-07-11] VITALS: BP 171/71
[2021-07-11 04:00] VITALS: BP 156/64
[2021-07-11 04:29] LABS: CALCIUM 7.9 mg/dL (8.5-10.1); CREATININE 7.8 mg/dL (0.6-1.3); POTASSIUM 4.8 mmol/L (3.5-5.1)
[2021-07-11 08:40] VITALS: BP 184/68
[2021-07-11 09:08] LABS: HEPATITIS B SURFACE AG Negative (Negative)
[2021-07-11 12:00] VITALS: BP 190/83
[2021-07-11 16:37] VITALS: BP 183/70
[2021-07-11 22:00] VITALS: BP 152/74
[2021-07-12] VITALS (7 sets, daily range): BP systolic 87–172; BP diastolic 43–72
[2021-07-12 07:34] LABS: CALCIUM 7.8 mg/dL (8.5-10.1); CREATININE 7.9 mg/dL (0.6-1.3); PHOSPHORUS* 6.3 mg/dL (2.5-4.9); POTASSIUM 4.6 mmol/L (3.5-5.1)
[2021-07-13 03:55] VITALS: BP 88/61
[2021-07-13 03:56] LABS: CALCIUM 7.5 mg/dL (8.5-10.1); CREATININE 7.9 mg/dL (0.6-1.3); POTASSIUM 4.1 mmol/L (3.5-5.1)
[2021-07-13 08:00] VITALS: BP 84/58
[2021-07-13 12:00] VITALS: BP 149/64
[2021-07-13 16:00] VITALS: BP 183/70
[2021-07-14] VITALS: BP 98/65
[2021-07-14 04:00] VITALS: BP 94/56
[2021-07-14 08:00] VITALS: BP 104/59
[2021-07-14 12:00] VITALS: BP 144/76
[2021-07-14 16:11] VITALS: BP 107/58
[2021-07-14 20:27] VITALS: BP 115/63
[2021-07-15 00:34] VITALS: BP 110/68
[2021-07-15 04:03] VITALS: BP 101/62
[2021-07-15 05:22] LABS: ALBUMIN 2.4 g/dL (3.4-5.0); CALCIUM 8.3 mg/dL (8.5-10.1); CREATININE 7.5 mg/dL (0.6-1.3); PHOSPHORUS* 4.7 mg/dL (2.5-4.9); POTASSIUM 4.1 mmol/L (3.5-5.1)
[2021-07-15 09:15] VITALS: BP 83/59
[2021-07-15 11:55] VITALS: BP 81/52
[2021-07-15 15:41] VITALS: BP 99/64
[2021-07-15 20:15] VITALS: BP 101/62
[2021-07-16] VITALS (9 sets, daily range): BP systolic 95–122; BP diastolic 56–80
[2021-07-16] MEDS ORDERED: DOXYCYCLINE 10100 MG PO (16:08)
[2021-07-16] MEDS ORDERED: DECADRON6 MG PO (16:08)
[2021-07-16] MEDS ORDERED: CEFDINIR300 MG PO (16:08)
[2021-07-17 04:39] VITALS: BP 120/81
[2021-07-17 08:00] VITALS: BP 114/82
[2021-07-17 13:44] VITALS: BP 122/73
--- NOTE | 2021-07-19 12:42 | CON ---
[address] [address] CONSULTATION Name: BARRETT OBANDO Shania Room: [address] IN .R.#: [id number] Admission: 07/05/21 Attend Phys: Seven Del Toro MD Discharge: 07/17/21 Date of : 54 Report #: [id number] THIS REPORT FOR: cc: Barbara Gutierrez Tami FNP Greiner, Robert F. II DO ~ DATE OF CONSULTATION: 07/09/2021 ORTHOPEDIC CONSULTATION CHIEF COMPLAINT: Right ankle pain. HISTORY OF PRESENT ILLNESS: The patient presented to the hospital, 70-year-old lady who presented with fall and weakness. The patient was seen in the Emergency Department. Family tested positive for COVID and she is tested positive. Does have history of COPD. Currently, she is noted to be on supplemental oxygen. She has low blood pressure and feels she was extremely weak, could not walk and fell down. She has lateral ankle pain, it lasts for several hours throughout the day, can get to a 6/10. It is worse with walking on it. She is being admitted for further evaluation. PAST MEDICAL HISTORY: COPD, chronic kidney disease, dyspnea, nausea, vomiting, UTI, wide complex tachycardia. ALLERGIES: CHLORPHENIRAMINE, CODEINE, PENICILLIN G, AND SULFAMETHOXAZOLE. MEDICATIONS: Listed in chart. FAMILY HISTORY: Noncontributory. SOCIAL HISTORY: The patient denies any tobacco at this time, was a former smoker, quit over a year ago. Past alcohol use, but no longer and recreational drug is never used. REVIEW OF SYSTEMS: A 12-system review of systems is negative except pertinent positives in the HPI. PHYSICAL EXAMINATION: GENERAL: The patient is a 70-year-old female in moderate distress. VITAL SIGNS: Pulse ox of 95, blood pressure 98/79, pulse of 86, respirations 17, temperature 97.2. HEENT: Head: Normocephalic, atraumatic. Eyes: Pupils are equal, round, reactive to light and accommodation. Nose: Clear without ulcerations. Mouth: Moist mucous membranes, no lesions. NECK: Supple, no JVD, [place] [address] CONSULTATION Name: BARRETT OBANDO Room: [address] IN [facility]#: [id number] Admission: 07/05/21 Attend Phys: Seven Del Toro MD Discharge: 07/17/21 Date of : 54 Report #: [id number] CARDIOVASCULAR: Regular rhythm. Cap refill is normal. LUNGS: There are diminished breath sounds and rhonchi. ABDOMEN: Soft, bowel sounds present, no masses. EXTREMITIES: No clubbing, cyanosis or edema. There is right ankle tenderness and peripheral pulses are normal. SKIN: Normal color. PSYCHIATRIC: Appropriate mood and affect. NEUROLOGIC: Alert and conversational. Moving all extremities. RADIOLOGIC EVALUATION: X-rays of the ankle, right yield a lateral malleolus nondisplaced oblique fracture with lateral soft tissue swelling. Hip x-rays negative for fracture. Chest x-ray does show hyperinflation of the lungs suggesting COPD. LABORATORY DATA: Sodium 133, potassium 5.9, chloride 92, BUN 64, creatinine 9.6. Hemoglobin 9.9, which are pertinent positives. ASSESSMENT: COVID-19 pneumonitis, acute on chronic respiratory failure, chronic obstructive pulmonary disease, right ankle fibular fracture, nondisplaced. PLAN: At this time, the patient has been admitted. We will begin closed treatment of the right fibular fracture. The patient is advised to go into a Cam boot. She is currently in a splint. We will continue minimal weightbearing at this time and advance as tolerated. We will see the patient back on an outpatient basis in the clinic. The patient will call with any questions at any time. <ELECTRONICALLY SIGNED> By: Dick Ghosh II, DO 07/19/21 1242 2109 [id number] Ghosh II, DO /nt
== END 2021-07-17 15:56 | disposition home health service (06) | DRG 177 ==
LOC: M.ERS 13:51 → M.ORTHSURG 17:35 → M.TBA-ER 17:35 → M.ORTHSURG 07-06 02:00
PROVIDERS: Internal Medicine; Internal Medicine Nephrology; Physician Assistant; ADMIT Internal Medicine; ATTEND Internal Medicine
PROC: 2W3QX1Z Immobilization of Right Lower Leg using Splint (ICD-10-PCS; principal; 2021-07-05)
PROC: 5A1D70Z Performance of Urinary Filtration, Intermittent, Less than 6 Hours Per Day (ICD-10-PCS; 2021-07-07)
DX: U07.1 COVID-19 (principal); N18.6 End stage renal disease; J96.21 Acute and chronic respiratory failure with hypoxia; J12.82 Pneumonia due to coronavirus disease 2019; J44.0 Chronic obstructive pulmonary disease with (acute) lower respiratory infection; I12.0 Hypertensive chronic kidney disease with stage 5 chronic kidney disease or end stage renal disease; E87.5 Hyperkalemia; I95.9 Hypotension, unspecified; D64.9 Anemia, unspecified; S82.891A Other fracture of right lower leg, initial encounter for closed fracture; I65.29 Occlusion and stenosis of unspecified carotid artery; W18.39XA Other fall on same level, initial encounter; Y93.89 Activity, other specified; Z88.6 Allergy status to analgesic agent; Z88.0 Allergy status to penicillin; Z88.2 Allergy status to sulfonamides; Z88.8 Allergy status to other drugs, medicaments and biological substances; Y92.89 Other specified places as the place of occurrence of the external cause; Y99.8 Other external cause status